=== PATIENT | female | born 1940 | race Caucasian/White ===

== ENCOUNTER 2024-04-28 12:47 | Outpatient (AMB) | payer MEDICARE, SELFPAY ==
--- NOTE | 2024-04-28 12:56 | MHC.OFFVIS ---
Intake Visit Reasons: incontinence Intake Note: New Patient presents for initial visit for incontinence Urology Medications: none Blood Thinner: none PVR: 0ml's Patient Experience Coordinator Required: No Accompanied by: Self / Same As Patient Allergies No Known Allergies Allergy (Verified 04/28/24 13:38) Medication List - Last Reconciled 04/28/24 by FRENCH Zayas-SARAH clotrimazole 1% 1 appl topical BID ergocalciferol (vitamin D2) 50,000 units PO DAILY famotidine 20 mg PO BID hydrochlorothiazide 12.5 mg PO DAILY olmesartan 40 mg PO DAILY venlafaxine ER 150 mg PO DAILY venlafaxine ER 75 mg PO DAILY HPI Comments Details: Fany yoon is a very pleasant 84-year-old female patient of Dr. Mohr. She has a past medical history of hypertension and type 2 diabetes. She presents to the office today as a new patient for urinary incontinence. In discussion with the patient today she reports symptoms have been present for over 20 years however feels they are worsening. She reports noting upon standing she has on sensed urinary incontinence. When asked she does report a previous history of 2 vaginal births of average size children. She otherwise denies hematuria, dysuria, foul smelling urine, changes to urinary stream, flank pain, fever, and or chills. In office urinalysis results reviewed with the patient today. PVR 0 mL. We discussed at length potential causes of incontinence as well as further treatment options and risks and benefits of these treatment options. Information was provided throughout today's office visit. All questions were answered. 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 She otherwise offers no other issues or concerns at this time. [facility] Medical History Type 2 diabetes mellitus without complication Stress incontinence Primary hypertension Review of Systems Const All systems reviewed & are unremarkable except as noted in HPI and below Physical Exam Const General: cooperative, healthy appearing, comfortable, no acute distress, well developed, alert and awake Orientation/consciousness: patient oriented x3 Limitations: no limitations HEENT Head: Yes normal to inspection, Yes normocephalic and Yes atraumatic Ears: hearing grossly normal bilaterally Eyes General: appearance normal, both eyes and all related structures Neck Neck: Yes normal visual inspection and Yes trachea midline Chest Chest palpation & inspection: normal inspection of the chest Resp Effort & Inspection: normal respiratory effort and able to speak in complete sentences Cardio Rate: regular rate GI Inspection: Yes normal to inspection General: Yes no CVA tenderness Back/Spine/Pelvis Back: no CVA tenderness Skin General skin exam: no rashes or lesions noted Neuro General: patient oriented x3 Extrem General: Yes normal to inspection Psych Appearance: grossly normal and well kempt Mental Status: mental status grossly normal Speech and movement: Normal speech and movement present and Clear speech present Affect: normal affect Attitude: cooperative Thought process: Normal thought process present Thought content: Normal thought content present Insight: Fair insight present (Psych) Judgement: Fair judgement present (Psych) Office Procedures Post Void Residual Post Residual Void Post Void Residual (PVR): 0 [id number]-[id number] Void Residual by ultrasound Results AMB Urinalysis, Automated UA Leukoctes 0 Trevin/uL Last Edit by [employer] on 04/28/24 13:40 UA Nitrite Last Edit by [employer] on 04/28/24 13:40 UA Urobilinogen 0.2 mg/dL Last Edit by [employer] on 04/28/24 13:40 UA Protein 0 mg/dL Last Edit by [employer] on 04/28/24 13:40 UA pH 7.0 Last Edit by [employer] on 04/28/24 13:40 UA Blood 0 Torres/uL Last Edit by [employer] on 04/28/24 13:40 UA Specific [place] 1.015 Last Edit by [employer] on 04/28/24 13:40 UA Ketone Last Edit by [employer] on 04/28/24 13:40 UA Bilirubin 0 mg/dL Last Edit by [employer] on 04/28/24 13:40 UA Glucose 0 mg/dL Last Edit by [employer] on 04/28/24 13:40 Assessment & Plan Assessment & Plan (1) Incontinence: Code(s): R32 - Unspecified urinary incontinence Category: Medical (2) Urinary leakage: Code(s): R32 - Unspecified urinary incontinence Category: Medical Plan In office urinalysis results reviewed with the patient today; as noted above. PVR 0 mL. We discussed at length potential causes of urinary leakage/stress incontinence as well as further treatment options and risks and benefits of these treatment options. Information provided. All questions were answered. Will obtain retroperitoneal ultrasound for further assessment evaluation. We discussed pelvic floor therapy/exercises. Follow-up in 1-3 months with imaging to be completed prior; or sooner with any issues, concerns, and or questions. Orders: Orders AMB Urinalysis Automated Today Z13.9 - Encounter for screening, unspecified AMB Post Void Residual by ultrasound Today Z13.9 - Encounter for screening, unspecified US retroperitoneal comp Today R32 - Unspecified urinary incontinence Patient Instructions: The patient had an opportunity to ask questions regarding the treatment plan. All questions were answered. Physical exam, labs, and imaging were discussed and reviewed in detail. As well as risks, benefits, and discussion of treatment choices. No major barriers to understanding were identified. The patient expressed understanding and agreement with the above treatment plan. The patient was made aware they should contact our office by phone for worsening of their current condition, the appearance of new symptoms, or with any questions or concerns. Compliance is encouraged with any medications and follow up testing that is ordered. It is a privilege to be allowed the opportunity to participate in? your urological care.? Again, if you have any questions or concerns If you have any questions or concerns please do not hesitate to contact me. The office is [phone]. This note is constructed using voice recognition software. While every effort has been made to ensure accuracy water quality specialist errors may have been included. Yours sincerely, JEANNIE Zayas Coding Level of Care Code New Pt Level 3 (69724) Diagnoses Incontinence R32 Urinary leakage R32 CPT Codes Post Residual Void - PVR CPT Code: 65622-Enzk Void Residual by ultrasound ([id number])
== END 2024-04-28 13:33 | disposition home or self-care (01) ==
PROVIDERS: PCP Pediatrics; Visit Provider Nurse Practitioner Family
DX: R32 Unspecified urinary incontinence (principal); Z13.9 Encounter for screening, unspecified
CPT/HCPCS: 99203

== ENCOUNTER → 2024-04-28 12:47 | Outpatient (BNVA) | payer MEDICARE, SELFPAY | PROVIDERS: PCP Pediatrics; Visit Provider Nurse Practitioner Family | DX: R32 Unspecified urinary incontinence (principal) | CPT/HCPCS: 51798; 81003; 99202 ==

== ENCOUNTER 2024-06-16 12:45 | Outpatient (REF) | payer MEDICARE, SELFPAY ==
--- NOTE | ~2024-06-16 | US_ITS ---
EXAMINATION: US KIDNEY BILATERAL HISTORY: R32 - Unspecified urinary incontinence TECHNIQUE: Real-time grayscale ultrasound imaging of the kidneys was performed and images were reviewed. COMPARISON: There are no prior studies for comparison. FINDINGS: Right kidney: The right kidney measures 10.5 x 4.0 x 4.4 cm. Renal parenchymal echotexture and thickness are normal. There is an upper pole cyst measuring 9 x 8 x 13 mm. There is mild fullness of the collecting system. No calculi are identified. Left Kidney: The left kidney measures 9.7 x 4.7 x 4.1 cm. Renal parenchymal echotexture and thickness are normal. There is a 4 x 4 by 2 mm cyst demonstrating a wall calcification in the interpolar region. There is mild pelvic fullness. No definite calculi are identified. US/US renal BI IMPRESSION: Bilateral renal cysts as described. Mild fullness of the bilateral renal collecting systems of uncertain significance. Electronically signed by: Elvis Germain MD 06/16/2024 03:28 PM EDT
== END 2024-06-16 12:46 | disposition home or self-care (01) ==
LOC: HO.US 12:45
PROVIDERS: PCP Pediatrics; Visit Provider Nurse Practitioner Family
DX: R32 Unspecified urinary incontinence (principal)
CPT/HCPCS: 76775

== ENCOUNTER → 2024-06-16 12:46 | Outpatient (BNV) | payer MEDICARE, SELFPAY | PROVIDERS: PCP Pediatrics; Visit Provider Radiology Diagnostic Radiology | DX: R32 Unspecified urinary incontinence (principal); N28.1 Cyst of kidney, acquired | CPT/HCPCS: 76775 ==

== ENCOUNTER 2024-06-30 12:07 | Outpatient (AMB) | payer MEDICARE, SELFPAY ==
--- NOTE | 2024-06-30 12:07 | A.OFFVIS_ITS ---
Intake Visit Reasons: 3 month follow up/ US(set) Intake Note: Patient presents today for tele visir follow up on: incontinence Urology Medications: none Blood Thinner: none Ballroom Dancer Required: No Accompanied by: Self / Same As Patient Allergies No Known Allergies Allergy (Verified 06/30/24 12:21) Medication List - Last Reconciled 06/30/24 by JEANNIE Zayas clotrimazole 1% 1 appl topical BID ergocalciferol (vitamin D2) 50,000 units PO DAILY famotidine 20 mg PO BID hydrochlorothiazide 12.5 mg PO DAILY olmesartan 40 mg PO DAILY venlafaxine ER 150 mg PO DAILY venlafaxine ER 75 mg PO DAILY HPI Comments Details: Fany Carvalho is a pleasant 84-year-old female patient of Dr. Mohr. She has a past medical history of hypertension and type 2 diabetes. She is being followed up on today via telehealth. Of note, patient was seen approximately 2 months ago as a new patient for urinary incontinence at which time a retroperitoneal ultrasound was ordered for further assessment evaluation. These results were reviewed with the patient today. Bilateral kidneys with no renal calculi. Bilateral renal cysts and mild fullness of bilateral renal collecting system noted. Patient unable to perform bladder ultrasound as she did not go with full bladder this has since been rescheduled. In discussion with the patient today she reports having trialed lifestyle modification with timed/scheduled voiding as recommending during initial appointment. She discusses feeling this has been helpful and she has had decreased episodes of incontinence. We discussed further interventions to include pelvic floor therapy or trial of medication as well as in office urodynamics for further assessment evaluation however patient feels lifestyle modifications have been helpful and would like to continue. She otherwise denies hematuria, dysuria, foul smelling urine, changes to urinary stream, flank pain, fever, and or chills. We discussed at length potential causes of incontinence as well as further treatment options and risks and benefits of these treatment options. All questions were answered. 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 She otherwise offers no other issues or concerns at this time. [facility] Medical History Type 2 diabetes mellitus without complication Stress incontinence Primary hypertension Review of Systems Const All systems reviewed & are unremarkable except as noted in HPI and below Physical Exam Const General: cooperative Orientation/consciousness: patient oriented x3 Resp Effort & Inspection: able to speak in complete sentences Neuro General: patient oriented x3 Psych Speech and movement: Clear speech present Affect: normal affect Thought content: Normal thought content present Insight: Fair insight present (Psych) Judgement: Fair judgement present (Psych) Telehealth Telehealth Telehealth Platform: [employer] Location of provider rendering services: practice address Location of patient: address on file Patient Identification confirmed using: Name, : Yes Telehealth method: voice only Patient verbally consented to treatment: Yes Patient verbally consented to billing insurance company: Yes Patient informed of any privacy concerns related to visit: Yes Minutes spent on Phone/Video with Pt.: 15 Results Reviewed Results Reviewed: Date of Service: 06/16/24 Procedure(s): US renal BI FINDINGS: Right kidney: The right kidney measures 10.5 x 4.0 x 4.4 cm. Renal parenchymal echotexture and thickness are normal. There is an upper pole cyst measuring 9 x 8 x 13 mm. There is mild fullness of the collecting system. No calculi are identified. Left Kidney: The left kidney measures 9.7 x 4.7 x 4.1 cm. Renal parenchymal echotexture and thickness are normal. There is a 4 x 4 by 2 mm cyst demonstrating a wall calcification in the interpolar region. There is mild pelvic fullness. No definite calculi are identified. IMPRESSION: Bilateral renal cysts as described. Mild fullness of the bilateral renal collecting systems of uncertain significance. Assessment & Plan Assessment & Plan (1) Urinary leakage: Code(s): R32 - Unspecified urinary incontinence Category: Medical (2) Incontinence: Code(s): R32 - Unspecified urinary incontinence Category: Medical (3) Renal cyst: Code(s): N28.1 - Cyst of kidney, acquired Category: Medical Plan Recent renal imaging results reviewed with the patient today; as noted above. Patient would like to continue with surveillance monitoring as she feels timed/scheduled voiding has been helpful. We discussed potential causes of lower urinary tract symptoms as well as further workup in risks and benefits of these interventions. Follow-up in 3 months with PVR; or sooner with any issues, concerns, and or questions. Patient Instructions: The patient had an opportunity to ask questions regarding the treatment plan. All questions were answered. Physical exam, labs, and imaging were discussed and reviewed in detail. As well as risks, benefits, and discussion of treatment choices. No major barriers to understanding were identified. The patient expressed understanding and agreement with the above treatment plan. The patient was made aware they should contact our office by phone for worsening of their current condition, the appearance of new symptoms, or with any questions or concerns. Compliance is encouraged with any medications and follow up testing that is ordered. It is a privilege to be allowed the opportunity to participate in? your urological care.? Again, if you have any questions or concerns If you have any questions or concerns please do not hesitate to contact me. The office is [phone]. This note is constructed using voice recognition software. While every effort has been made to ensure accuracy shop worker errors may have been included. Yours sincerely, JEANNIE Zayas Coding Level of Care Code Tele Est Pt Level 3 (65307) Diagnoses Urinary leakage R32 Incontinence R32 Renal cyst N28.1
== END 2024-06-30 13:23 | disposition home or self-care (01) ==
LOC: HO.HUSH 12:07
PROVIDERS: PCP Pediatrics; Visit Provider Nurse Practitioner Family
DX: R32 Unspecified urinary incontinence (principal); N28.1 Cyst of kidney, acquired
CPT/HCPCS: 99213

== ENCOUNTER → 2024-06-30 12:07 | Outpatient (BNVA) | payer MEDICARE, SELFPAY | PROVIDERS: PCP Pediatrics; Visit Provider Nurse Practitioner Family ==

== ENCOUNTER 2024-09-30 12:09 | Outpatient (AMB) | payer MEDICARE, SELFPAY ==
--- NOTE | 2024-09-30 13:34 | MHC.OFFVIS ---
Intake Visit Reasons: 3M follow up Intake Note: Patient presents today for tele visir follow up on: incontinence Urology Medications: none Blood Thinner: none PVR: 64ml's Data Power Consultant Required: No Accompanied by: Self / Same As Patient Allergies No Known Allergies Allergy (Verified 09/30/24 15:11) Medication List - Last Reconciled 09/30/24 by JEANNIE Zayas clotrimazole 1% 1 appl topical BID ergocalciferol (vitamin D2) 50,000 units PO DAILY famotidine 20 mg PO BID hydrochlorothiazide 12.5 mg PO DAILY olmesartan 40 mg PO DAILY venlafaxine ER 150 mg PO DAILY venlafaxine ER 75 mg PO DAILY HPI Comments Details: Fany Carvalho is a pleasant 84-year-old female patient of Dr. Mohr. She has a past medical history of hypertension and type 2 diabetes. She presents to the office today for follow-up of her lower urinary tract symptoms. In discussion with the patient today she continues to experience episodes of mixed urinary incontinence. We did review further treatment options of mixed urinary incontinence and risks and benefits of these interventions. All questions were answered. Previous workup has included renal ultrasound 06/30 bilateral kidneys are normal in thickness and echotexture. No renal calculi bilaterally. Bilateral renal cysts. Mild fullness of bilateral renal collecting systems. In office urinalysis results reviewed with the patient today. PVR 64mls. We discussed further interventions to include pelvic floor therapy or trial of medication as well as in office urodynamics for further assessment evaluation. She otherwise denies hematuria, dysuria, foul smelling urine, changes to urinary stream, flank pain, fever, and or chills. We discussed at length potential causes of incontinence as well as further treatment options and risks and benefits of these treatment options. All questions were answered. 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 She otherwise offers no other issues or concerns at this time. [facility] Medical History Type 2 diabetes mellitus without complication Stress incontinence Primary hypertension Review of Systems Const All systems reviewed & are unremarkable except as noted in HPI and below Physical Exam Const General: cooperative, healthy appearing, comfortable, no acute distress, well developed, alert and awake Orientation/consciousness: patient oriented x3 Limitations: no limitations HEENT Head: Yes normal to inspection, Yes normocephalic and Yes atraumatic Ears: hearing grossly normal bilaterally Eyes General: appearance normal, both eyes and all related structures Neck Neck: Yes normal visual inspection and Yes trachea midline Chest Chest palpation & inspection: normal inspection of the chest Resp Effort & Inspection: normal respiratory effort and able to speak in complete sentences Cardio Rate: regular rate GI Inspection: Yes normal to inspection General: Yes no CVA tenderness Back/Spine/Pelvis Back: no CVA tenderness Skin General skin exam: no rashes or lesions noted Neuro General: patient oriented x3 Extrem General: Yes normal to inspection Psych Appearance: grossly normal and well kempt Mental Status: mental status grossly normal Speech and movement: Normal speech and movement present and Clear speech present Affect: normal affect Attitude: cooperative Thought process: Normal thought process present Thought content: Normal thought content present Insight: Fair insight present (Psych) Judgement: Fair judgement present (Psych) Office Procedures Post Void Residual Post Residual Void Post Void Residual (PVR): 64 [id number] Void Residual by ultrasound Results AMB Urinalysis, Automated UA Leukoctes 0 Trevin/uL Last Edit by Hamilton Gao [facility] on 09/30/24 13:55 UA Nitrite [facility] on 09/30/24 13:55 UA Urobilinogen 0.2 mg/dL Last Edit by Hamilton Gao [facility] on 09/30/24 13:55 UA Protein 0 mg/dL [facility] on 09/30/24 13:55 UA pH 6.5 Last Edit [facility] on 09/30/24 13:55 UA Blood 0 Torres/uL Last Edit [facility] on 09/30/24 13:55 UA Specific [place] 1.015 Last Edit by Hamilton Gao [facility] on 09/30/24 13:55 UA Ketone Last Edit [facility] on 09/30/24 13:55 UA Bilirubin 0 mg/dL Last Edit [facility] on 09/30/24 13:55 UA Glucose 0 mg/dL Last Edit [facility] on 09/30/24 13:55 Results Reviewed Results Reviewed: Laboratory Last Values Urine pH (Auto) 6.5 09/30/24 13:54 Specific [place] (Auto) 1.015 09/30/24 13:54 Urine Protein (Auto) 0 mg/dL 09/30/24 13:54 Glucose (UA)(Auto) 0 mg/dL 09/30/24 13:54 Urine Blood (Auto) 0 Torres/uL 09/30/24 13:54 Urine Bilirubin (Auto) 0 mg/dL 09/30/24 13:54 Urine Urobilinogen (Auto) 0.2 mg/dL 09/30/24 13:54 Leukocyte Esterase (Auto) 0 Trevin/uL 09/30/24 13:54 Date of Service: 06/16/24 Procedure(s): US renal BI FINDINGS: Right kidney: The right kidney measures 10.5 x 4.0 x 4.4 cm. Renal parenchymal echotexture and thickness are normal. There is an upper pole cyst measuring 9 x 8 x 13 mm. There is mild fullness of the collecting system. No calculi are identified. Left Kidney: The left kidney measures 9.7 x 4.7 x 4.1 cm. Renal parenchymal echotexture and thickness are normal. There is a 4 x 4 by 2 mm cyst demonstrating a wall calcification in the interpolar region. There is mild pelvic fullness. No definite calculi are identified. IMPRESSION: Bilateral renal cysts as described. Mild fullness of the bilateral renal collecting systems of uncertain significance. Assessment & Plan Assessment & Plan (1) Urinary leakage: Code(s): R32 - Unspecified urinary incontinence Category: Medical (2) Incontinence: Code(s): R32 - Unspecified urinary incontinence Category: Medical (3) Renal cyst: Code(s): N28.1 - Cyst of kidney, acquired Category: Medical Plan In office urinalysis results reviewed with the patient today; as noted above. PVR 64 mL Recent renal imaging results reviewed with the patient today; as noted above. We did discussed further treatment options of lower urinary tract symptoms patient is experiencing as well as risks and benefits of these treatment options Start Myrbetriq as discussed and prescribed. Follow-up in 1-3 months with PVR; or sooner with any issues, concerns, and or questions. Orders: Orders AMB Urinalysis Automated Today Z13.9 - Encounter for screening, unspecified AMB Post Void Residual by ultrasound Today R32 - Unspecified urinary incontinence Medications: New mirabegron ER (Myrbetriq) 25 mg PO DAILY 30 tabs 3RF 30 days N32.81 - Overactive bladder, R39.15 - Urgency of urination Patient Instructions: The patient had an opportunity to ask questions regarding the treatment plan. All questions were answered. Physical exam, labs, and imaging were discussed and reviewed in detail. As well as risks, benefits, and discussion of treatment choices. No major barriers to understanding were identified. The patient expressed understanding and agreement with the above treatment plan. The patient was made aware they should contact our office by phone for worsening of their current condition, the appearance of new symptoms, or with any questions or concerns. Compliance is encouraged with any medications and follow up testing that is ordered. It is a privilege to be allowed the opportunity to participate in? your urological care.? Again, if you have any questions or concerns If you have any questions or concerns please do not hesitate to contact me. The office is [phone]. This note is constructed using voice recognition software. While every effort has been made to ensure accuracy drift miner errors may have been included. Yours sincerely, JEANNIE Zayas Coding Level of Care Code Est Pt Level 4 (21731) Diagnoses Urinary leakage R32 Incontinence R32 Renal cyst N28.1 CPT Codes Post Residual Void - PVR CPT Code: 67930-Sglj Void Residual by ultrasound ([id number])
== END 2024-09-30 14:45 | disposition home or self-care (01) ==
PROVIDERS: PCP Pediatrics; Visit Provider Nurse Practitioner Family
DX: R32 Unspecified urinary incontinence (principal); N28.1 Cyst of kidney, acquired; Z13.9 Encounter for screening, unspecified
CPT/HCPCS: 99214

== ENCOUNTER → 2024-09-30 12:09 | Outpatient (BNVA) | payer MEDICARE, SELFPAY | PROVIDERS: PCP Pediatrics; Visit Provider Nurse Practitioner Family | DX: N28.1 Cyst of kidney, acquired (principal); R32 Unspecified urinary incontinence | CPT/HCPCS: 51798; 81003; 99212 ==

== ENCOUNTER 2025-01-05 11:43 | Outpatient (AMB) | payer MEDICARE, SELFPAY ==
--- NOTE | 2025-01-05 11:49 | MHC.OFFVIS ---
Intake Visit Reasons: 3M/PVR Intake Note: patient presents today for: 3mo/PVR urology medications: mirabegron blood thinners: none today's PVR: 20mls Business Architect Required: No Accompanied by: Self / Same As Patient Allergies No Known Allergies Allergy (Verified 01/05/25 13:10) Medication List - Last Reconciled 01/05/25 by JEANNIE Zayas clotrimazole 1% 1 appl topical BID ergocalciferol (vitamin D2) 50,000 units PO DAILY famotidine 20 mg PO BID hydrochlorothiazide 12.5 mg PO DAILY mirabegron ER (Myrbetriq) 25 mg PO DAILY 30 days olmesartan 40 mg PO DAILY solifenacin (Vesicare) 5 mg PO DAILY 30 days venlafaxine ER 150 mg PO DAILY venlafaxine ER 75 mg PO DAILY HPI Comments Details: Fany Carvalho is a pleasant 84-year-old female patient of Dr. Mohr. She has a past medical history of hypertension and type 2 diabetes. She presents to the office today for follow-up of her lower urinary tract symptoms. In discussion with the patient today she continues to experience episodes of mixed urinary incontinence. She reports feeling Myrbetriq has been helpful in lessening these episodes however she does continue to have mixed urinary incontinence. Previous workup has included renal ultrasound 06/30 bilateral kidneys are normal in thickness and echotexture. No renal calculi bilaterally. Bilateral renal cysts. Mild fullness of bilateral renal collecting systems. In office urinalysis results reviewed with the patient today. PVR 20mls. We did discussed further treatment options and risks and benefits of these treatment options. Information provided regarding pelvic floor therapy as well as in office urodynamics. She otherwise denies hematuria, dysuria, foul-smelling urine, changes to urinary stream, flank pain, fever, and or chills. She discusses her recent hospitalization for pneumonia however has been recovering well. 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 All questions were answered. She otherwise offers no other issues or concerns at this time. [facility] Medical History Type 2 diabetes mellitus without complication Stress incontinence Primary hypertension Review of Systems Const All systems reviewed & are unremarkable except as noted in HPI and below Physical Exam Const General: cooperative, healthy appearing, comfortable, no acute distress, well developed, alert and awake Orientation/consciousness: patient oriented x3 Limitations: no limitations HEENT Head: Yes normal to inspection, Yes normocephalic and Yes atraumatic Ears: hearing grossly normal bilaterally Eyes General: appearance normal, both eyes and all related structures Neck Neck: Yes normal visual inspection and Yes trachea midline Chest Chest palpation & inspection: normal inspection of the chest Resp Effort & Inspection: normal respiratory effort and able to speak in complete sentences Cardio Rate: regular rate GI Inspection: Yes normal to inspection General: Yes no CVA tenderness Back/Spine/Pelvis Back: no CVA tenderness Skin General skin exam: no rashes or lesions noted Neuro General: patient oriented x3 Extrem General: Yes normal to inspection Psych Appearance: grossly normal and well kempt Mental Status: mental status grossly normal Speech and movement: Normal speech and movement present and Clear speech present Affect: normal affect Attitude: cooperative Thought process: Normal thought process present Thought content: Normal thought content present Insight: Fair insight present (Psych) Judgement: Fair judgement present (Psych) Office Procedures Post Void Residual Post Residual Void Post Void Residual (PVR): 20 28187-[id number] Void Residual by ultrasound Results AMB Urinalysis, Automated UA Leukoctes 15 Trevin/uL Last Edit by JAYRO Lloyd on 01/05/25 12:05 UA Nitrite Last Edit by JAYRO Lloyd on 01/05/25 12:05 UA Urobilinogen 0.2 mg/dL Last Edit by JAYRO Lloyd on 01/05/25 12:05 UA Protein 15 mg/dL Last Edit by JAYRO Lloyd on 01/05/25 12:05 UA pH 6.5 Last Edit by JAYRO Lloyd on 01/05/25 12:05 UA Blood 0 Torres/uL Last Edit by JAYRO Lloyd on 01/05/25 12:05 UA Specific [place] 1.015 Last Edit by JAYRO Lloyd on 01/05/25 12:05 UA Ketone Negative Last Edit by JAYRO Lloyd on 01/05/25 12:05 UA Bilirubin 0 mg/dL Last Edit by JAYRO Lloyd on 01/05/25 12:05 UA Glucose 0 mg/dL Last Edit by JAYRO Lloyd on 01/05/25 12:05 Results Reviewed Results Reviewed: Laboratory Last Values Urine pH (Auto) 6.5 01/05/25 12:04 Specific [place] (Auto) 1.015 01/05/25 12:04 Urine Protein (Auto) 15 mg/dL 01/05/25 12:04 Glucose (UA)(Auto) 0 mg/dL 01/05/25 12:04 Urine Ketones (Auto) Negative 01/05/25 12:04 Urine Blood (Auto) 0 Torres/uL 01/05/25 12:04 Urine Bilirubin (Auto) 0 mg/dL 01/05/25 12:04 Urine Urobilinogen (Auto) 0.2 mg/dL 01/05/25 12:04 Leukocyte Esterase (Auto) 15 Trevin/uL 01/05/25 12:04 Assessment & Plan Assessment & Plan (1) Incontinence: Code(s): R32 - Unspecified urinary incontinence Category: Medical (2) Urinary leakage: Code(s): R32 - Unspecified urinary incontinence Category: Medical (3) Renal cyst: Code(s): N28.1 - Cyst of kidney, acquired Category: Medical Plan In office urinalysis results reviewed the patient today; as noted above. PVR 20 mL. Continue Myrbetriq. Start VESIcare as discussed and prescribed. We did discuss further treatment options of lower urinary tract symptoms she is experiencing as well as risks and benefits of these treatment options. All questions were answered. We did discussed the importance of timed/scheduled voiding Information provided regarding pelvic floor exercises. Follow-up in 1-3 months with PVR; or sooner with any issues, concerns, and or questions. Orders: Orders AMB Post Void Residual by ultrasound Today R32 - Unspecified urinary incontinence AMB Urinalysis Automated Today Z13.9 - Encounter for screening, unspecified Medications: New solifenacin (Vesicare) 5 mg PO DAILY 30 tabs 3RF 30 days Refilled mirabegron ER (Myrbetriq) 25 mg PO DAILY 30 tabs 3RF 30 days N32.81 - Overactive bladder, R39.15 - Urgency of urination Patient Instructions: The patient had an opportunity to ask questions regarding the treatment plan. All questions were answered. Physical exam, labs, and imaging were discussed and reviewed in detail. As well as risks, benefits, and discussion of treatment choices. No major barriers to understanding were identified. The patient expressed understanding and agreement with the above treatment plan. The patient was made aware they should contact our office by phone for worsening of their current condition, the appearance of new symptoms, or with any questions or concerns. Compliance is encouraged with any medications and follow up testing that is ordered. It is a privilege to be allowed the opportunity to participate in? your urological care.? Again, if you have any questions or concerns If you have any questions or concerns please do not hesitate to contact me. The office is [phone]. This note is constructed using voice recognition software. While every effort has been made to ensure accuracy claims account manager errors may have been included. Yours sincerely, JEANNIE Zayas Coding Level of Care Code Est Pt Level 4 (63384) Complex EM visit Add On G2211 Diagnoses Incontinence R32 Urinary leakage R32 Renal cyst N28.1 CPT Codes Post Residual Void - PVR CPT Code: 20751-Zebj Void Residual by ultrasound ([id number])
--- OUTSIDE RECORDS SUMMARY | 2025-01-05 13:07 | XMS_ITS | Encounter Summary ---
Author Organization [facility] Address [address] [place] [address] Phone Care Team Providers Care Surveyor Helper Rod Name Role Phone Evaristo Mohr DO Primary Care Provider Evaristo Mohr DO Unavailable [phone] Keri Knox RN Unavailable [phone] Encounter Details Date Type Department Care Team (Late st Contact Info) Description 11/14/2024 Procedure Pass [facility] [address] [place], [place] [id number] Social History Tobacco Use Types Packs/Day Years Used Date Smoking Tobacco: Never Smokeless Tobacco: Never Alcohol Use Standard Drinks/Week Comments Not Currently 0 (1 standard drink = 0.6 oz pur e alcohol) Education Answer Date Recorded Are you interested in more education? Not on shahram e 08/04/2022 Are you concerned about learning? Not on file 08/04/2022 No 08/04/2022 No 08/04/2022 Food Answer Date Recorded Within the past 6 months we worried whether our food would run out before we got money to buy more. Never True 11/13/2024 Within the past 6 months the food we bought just didn't last and we didn't have enough money to get more. Never True Residential Stability Answer Date Recor ded What is your housing situation today? I have juan alberto sing 11/13/2024 How many times have you move d in the past 12 months? Zero (I did not move) 11/13/2024 Paying for Meds Answer Date Recorded Do you have trouble paying for medicines? No 11/13/2024 Paying Utility Bills Answer Date Record ed Do you have trouble paying your heating or elect ricity bill? No 11/13/2024 Transportation Answer Date Recorded Has the lack of transportati on kept you from medical appointments or from getting medications? No 11/13/2024 Digital Access Answer Date Recorded No 11/13/2024 Yes 11/13/2024 Do you have reliable internet access at home? Ye s 11/13/2024 Do you have a device (e.g., phone, tablet, computer) with a working camera? Yes 11/13/2024 Intimate Partner Violence Answer Date R ecorded Are you denied basic needs s uch as food, clothing, or medical care? No 11/13/2024 In the past 12 months have y ou been in a relationship with a person who hurts, threatens, or tries to control you? No 11/13/2024 Are you denied basic needs s uch as food, clothing, or medical care? No 11/13/2024 In the past 12 months have y ou been in a relationship with a person who hurts, threatens, or tries to control you? No 11/13/2024 Comments No Sex and Gender Information Value Date Recorded Sex Assigned at Female 12/13/2020 11:36 AM EDT Legal Sex Female 6:32 PM EST Gender Identity Female 12/13/2020 11:36 AM EDT Sexual Orientation Straight 12/13/2020 11 :36 AM EDT documented as of this encounter Plan of Treatment Upcoming Encounters Date Type Department Care Team (Late st Contact Info) Description 01/11/2025 2:00 PM EDT Office Visit [facility] [facility] [address] [place] [address] [place] [address] Evaristo Mohr DO [address] [facility], 2nd [place] [address] 02/26/2025 10:30 AM EST Office Visit [facility] [address] [place] [address] [address]rd Floor, [address] [place] [address] JimmyHernesto, DO [address] [address] 03/18/2025 9:30 AM EST Office Visit [facility] [address] [place] [address] [place] [address] Evaristo Mhor, [address] [facility], [address] [place] [id number] documented as of this encounter Visit Diagnoses Not on filedocumented in this encounter Additional Health Concerns Infection Onset Date Last Indicated Resolved Time CoV-Risk 11/13/2024 11/13/2024 11/24/2024 1:21 AM EDT Assessment Noted Time PHQ-9 Depression Total Score: 8 12/14/19 21 12:03 PM EDT PHQ-2 Depression Total Score: 1 03/15/20 24 9:34 PM EST documented as of this encounter Care Teams Surveyor Helper Rod Relationship Specialty Start Date End Date Evaristo Mohr DO [address] [place] [id number] PCP - General Internal Medicine 12/08/21 Evaristo Mohr DO [address] [place] [id number] Insurance Assigned Provider 07/13/23 Keri Knox, RN [address] [place] [id number] [employer] T[employer] Calender 12/31/22 documented as of this encounter Additional Source Comments The information contained in this document represents components of the legal health record. It is not the complete legal health record.[facility]
--- OUTSIDE RECORDS SUMMARY | 2025-01-05 13:07 | XMS_ITS | Encounter Summary ---
Author Organization [facility] Address [address] [place] [address] Phone Care Team Providers Care Spray Worker Name Role Phone Ros Hernandez MD Primary Care Provider [email or web address] Ros Hernandez MD Unavailable [email or web address] Evaristo Mohr DO Primary Care Provider Evaristo Mohr DO Unavailable [phone] Keri Knox RN Unavailable Encounter Details Date Type Department Care Team (Late st Contact Info) Description 11/16/2021 Procedure Pass [place] Admitting Dept - [facility] Department [address] [place] [id number] Social History Tobacco Use Types Packs/Day Years Used Date Smoking Tobacco: Never Smokeless Tobacco: Never Alcohol Use Standard Drinks/Week Comments Not Currently 0 (1 standard drink = 0.6 oz pur e alcohol) Comments No Sex and Gender Information Value Date Recorded Sex Assigned at Female 12/13/2020 11:36 AM EDT Legal Sex Female 6:32 PM EST Gender Identity Female 12/13/2020 11:36 AM EDT Sexual Orientation Straight 12/13/2020 11 :36 AM EDT documented as of this encounter Functional Status * Calculated C-SSRS Risk Score (Lifetime/Recent) Answer Date of Assessment Author No Risk Indicated 11/16/2021 2:52 PM EDT Sharyn Gordillo, SIOBHAN * [place] Suicide Severity Rating Scale (Screener/Recent Self-Report) Question Answer Date of Assessment Author 1. Wish to be (Past 1 Month) No 11/16/2021 2:52 PM EDT Sharyn Gordillo, SIOBHAN 2. Non-Specific Active Suici guero Thoughts (Past 1 Month) No 11/16/2021 2:52 PM EDT Sharyn Gordillo, SIOBHAN 6. Suicidal Behavior (Lifetime) No 2:52 PM EDT Sharyn Gordillo, SIOBHAN documented as of this encounter Plan of Treatment Upcoming Encounters Date Type Department Care Team (Late st Contact Info) Description 01/11/2025 2:00 PM EDT Office Visit [address] [place] [address] Evaristo Mohr, [address] [facility], [address] [place] [address] 02/26/2025 10:30 AM EST Office Visit [facility] [address] [place] [address] [address]rd Floor, [address] [place] [address] [address] [facility] [address] [place] [address] 03/18/2025 9:30 AM EST Office Visit [address] [place] [address] Evaristo Mohr, [address] [place] [address], [address] [place] [address] documented as of this encounter Visit Diagnoses Not on filedocumented in this encounter Additional Health Concerns Infection Onset Date Last Indicated Resolved Time MDR-GN 07/18/2021 12/15/2021 12/22/2022 1:23 AM EDT CoV-Exposed Comment:Added per Home Health documentation 02/02/2022 02/07/2022 02/13/2022 1:[address] CoV-Exposed Comment:Added per Home Health documentation 02/13/2022 02/13/2022 02/24/2022 1:[address] CoV-Risk 11/13/2024 11/13/2024 11/24/2024 1:21 AM EDT Assessment Noted Time PHQ-9 Depression Total Score: 8 12/14/19 21 12:03 PM EDT PHQ-2 Depression Total Score: 1 03/23/20 21 10:31 AM EST documented as of this encounter Care Teams Spray Worker Relationship Specialty Start Date End Date Ros Hernandez MD [email or web address] PCP - General Family Medicine 05/30/20 12/07/21 Evaristo Mohr DO [address] [place] [phone] PCP - General Internal Medicine 12/08/21 Ros Hernandez MD [email or web address] Insurance Assigned Provider 07/16/20 07/14/22 Evaristo Mohr DO [address] [place] [id number] Insurance Assigned Provider 07/13/23 Keri Knox, RN [address] [place] [id number] [email or web address] Senior Business Development Manager 12/31/22 documented as of this encounter Additional Source Comments The information contained in this document represents components of the legal health record. It is not the complete legal health record.[facility]
--- OUTSIDE RECORDS SUMMARY | 2025-01-05 13:07 | XMS_ITS | Clinical Summary ---
Author Organization [facility] Address [address] [place] [address] Phone Care Team Providers Care Patch Finisher Name Role Phone Ousmane Mohr DO Primary Care Provider Ousmane Mohr DO Unavailable [phone] Keri Knox RN Unavailable [phone] Allergies No known active allergies Medications hydroCHLOROthia zide 12.5 mg capsule TAKE 1 CAPSULE BY MOUTH EVERY DAY 90 capsule 3 05/19/19 25 Active famotidine (PEPCID) 20 MG tablet TAKE 1 TABLET BY MOUTH TWICE A DAY 180 tablet 3 05/20/19 25 Active Additional Information Patient taking differently:20 mg OralAs needed in apheresis, Reported on 11/20/2024 ONETOUCH ULTRA TEST Strp stripsIndicatio ns:Diabetes mellitus USE 1 EACH EVERY MORNING 50 strip 3 07/18/19 25 Active docusate sodium (COLACE) 50 MG capsule Take 50 mg by mouth 2 (two) times a day as needed for mild constipation. Active ergocalciferol (DRISDOL) 50,000 unit capsuleIndicati ons:Vitamin D deficiency TAKE 1 CAPSULE (50,000 UNITS TOTAL) BY MOUTH EVERY 30 DAYS 3 capsule 3 10/21/19 25 Active MYRBETRIQ 25 mg Tb24 Take 1 tablet by mouth every morning. 10/28/19 25 Active multivitamin-mi nerals-lutein (CENTRUM SILVER) Tab Take 1 tablet by mouth daily. Active apixaban (ELIQUIS) 5 mg tablet Take 1 tablet (5 mg total) by mouth 2 (two) times a day. 60 tablet 2 11/16/19 25 Active venlafaxine (EFFEXOR-XR) 150 MG 24 hr capsule TAKE 1 CAPSULE (150 MG TOTAL) BY MOUTH DAILY. WITH 75 MG DOSE PER DAY. 90 capsule 3 11/17/19 25 Active venlafaxine (EFFEXOR-XR) 75 MG 24 hr capsule TAKE 1 CAPSULE (75 MG TOTAL) BY MOUTH DAILY. WITH 150 MG DOSE PER DAY. 90 capsule 3 11/17/19 25 Active olmesartan (BENICAR) 40 mg tabletIndicatio ns:Primary hypertension Take 0.5 tablets (20 mg total) by mouth daily. 90 tablet 3 12/07/19 25 Active candesartan (ATACAND) 16 MG tabletIndicatio ns:Elevated BP without diagnosis of hypertension Take 1 tablet (16 mg total) by mouth daily. 90 tablet 06/17/19 22 022 Discontinued Active Problems Patient Care Coordination No te Formatting of this note migh t be different from the original. Patient is high risk for these reasons: multiple chronic condition Living Situation: Lives with spouse and adult son, 1 story ranch Functional Status (ADL's/iADLs): Independent Family/Social Supports: Family, gnosticism community Goals of Care (HCP/Molst): HCP filed 11/21/2021 Community Supports (e.g. VNA, DME Vendors, Elder Services): Therapist biweekly Transportation: Drives self Medication Management System/Specialized Pharmacy Needs: local pharmacy forklift picker, self managed with pillbox Financial Concerns: [facility] insurance is costing too much Other Supports and Care Needs: lower cost of medications Problem Noted Date Diagnosed Date Sepsis due to pneumonia 11/14/2024 Assessment & Plan (11/18/2024 8:34 AM EDT): I believe that this could have been responsible for triggering the atrial fibrillation Assessment & Plan (11/14/2024 1:21 AM EDT): Meets sepsis by SIRS criteria of fever and tachypnea. Probable source is pulmonary as she has rhonchi in the left base and chest x-ray with infiltrate in that area as well. Given IV ceftriaxone and oral doxycycline in the emergency department as there is a remote chance for tickborne illness with her thrombocytopenia. Will continue with ceftriaxone and doxycycline while tick panel pending. New onset atrial fibrillation 11/14/2024 Assessment & Plan (11/23/2024 7:17 PM EDT): She will have follow up with cardiology. We discussed that this may have been temporary and just related to her pneumonia. Assessment & Plan (11/18/2024 8:34 AM EDT): She had a new diagnosis of atrial fibrillation now on anticoagulation but this was during a time that she had a new diagnosis of pneumonia as well. It is conceivable that this triggered the atrial fibrillation we are going to get a 7-day MCT monitor to look at this Assessment & Plan (11/14/2024 1:21 AM EDT): Asymptomatic. I did not have the opportunity to discuss anticoagulation, but given her thrombocytopenia I am only going to give aspirin at this time. This can be discussed further during the admission. Will obtain an echocardiogram Impaired glucose tolerance 11/14/2024 Assessment & Plan (11/14/2024 1:21 AM EDT): Will give as needed lispro Overactive bladder 09/05/2023 Assessment & Plan (09/05/2023 10:50 PM EDT): We discussed trial of Ditropan, she is agreeable to this. Discussed possible side effects and follow-up if problematic. Order placed today. Anxiety state 03/07/2023 Assessment & Plan (04/18/2023 10:47 PM EST): Stable and well-controlled on current medication, no change at this time. Continue monitoring. Assessment & Plan (03/07/2023 11:25 PM EST): Patient with increased anxiety lately, we will increase her dose of venlafaxine to 150 mg and 75 mg for a total of 225 milligrams per day. Follow-up in 6 weeks to discuss efficacy. Constipation 12/20/2022 Assessment & Plan (12/20/2022 11:12 PM EDT): Patient some ongoing issues with constipation, Colace was working however would like to trial MiraLAX as it may be cheaper. Patient to titrate dose to soft bowel movement daily or every other day. Continue to monitor for effectiveness. Stress incontinence 09/19/2022 Assessment & Plan (09/05/2023 11:40 PM EDT): We discussed seeing urology for further treatment and management options. 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 We discussed trial of pelvic floor exercises to see if this improves symptoms. She is agreeable to this plan. Continue to monitor. ESBL E. coli carrier 01/25/2022 Overweight (BMI 25.0-29.9) 09/18/2021 Essential hypertension 03/26/2021 Assessment & Plan (12/06/2024 2:22 PM EDT): Stable and well-controlled, medication held currently, no change. Consider restart if elevated Assessment & Plan (11/23/2024 7:17 PM EDT): Her blood pressure is low. Will continue to hold olmesartan and HCTZ. Assessment & Plan (11/18/2024 8:34 AM EDT): Her blood pressure is on the lower side right now we are not going to reinstate her olmesartan or hydrochlorothiazide Assessment & Plan (11/14/2024 1:21 AM EDT): Hold hydrochlorothiazide as she likely has some dehydration from insensible loss related to fever. Will give IV fluids. Will give losartan in place of her olmesartan. Assessment & Plan (09/16/2024 4:33 PM EDT): Stable well-controlled on current medication, no changes time. Continue monitoring. Assessment & Plan (03/17/2024 12:23 AM EST): Stable well-controlled on her medication, no changes sent. Continue monitoring. Assessment & Plan (09/05/2023 10:44 PM EDT): Blood pressures relatively fzyh-[id number] elevated, some on low side. Recommended continue monitoring with no change at this time. Assessment & Plan (06/05/2023 10:42 PM EST): Blood pressure is relatively stable, continue monitoring. No change to medication at this time. Assessment & Plan (04/18/2023 10:47 PM EST): Still borderline controlled blood pressures-particularly diastolic blood pressure is elevated-will trial HCTZ, monitor for effect. Start with low-dose and titrate up if needed. Recheck BMP in 2 weeks time. Assessment & Plan (12/20/2022 11:11 PM EDT): Stable and well-controlled on current medication, no change at this time. Continue monitoring. Assessment & Plan (09/19/2022 9:24 PM EDT): Stable, continue losartan as it seems coverage was changed due to insurance requirements. Patient agreeable to this plan. We will monitor for any change in blood pressure control. Suspect will be tolerated well. Assessment & Plan (06/17/2022 11:14 PM EDT): Home blood pressure continuing to run between normal and slightly elevated, today here is again normal. Previously verified cough. We will continue monitoring, may require increased dose of medication. Assessment & Plan (05/01/2022 10:38 PM EST): Patient with a history of hypertension, has been well controlled previously however more recently has had elevated pressures. Blood pressure at home fluctuates between normal and slightly elevated. Today here is normal. We verified her cuff today in clinic which shows similar numbers. Advised continue monitoring and recheck at next visit. If persistently running elevated, could increase medication prior to next visit. Advised patient to let us know. Assessment & Plan (01/25/2022 10:07 PM EDT): Blood pressure is well controlled and cuff is verified as of today. Continue current medications as previously prescribed. No need for further adjustment. We will continue monitoring. Assessment & Plan (11/17/2021 8:48 AM EDT): BP in ED initially quite elevated 198/108, improved after pain meds. -Creatinine is at baseline, continue ARB (Valsartan while inpatient due to formulary, cont previous home med at [facility]). -Routine VS -Follow BMP Hiatal hernia 01/18/2021 Assessment & Plan (01/18/2021 5:10 PM EDT): Small hiatal hernia, seen on EGD Discussed with patient that this may or may not be related to the nausea/flushing sensation she has been experiencing Sometimes hiatal hernias can contribute to GERD, but not always Would discuss it further with GI at upcoming appointment Dysuria 01/18/2021 Assessment & Plan (06/17/2022 11:15 PM EDT): Patient again notes some dysuria-we discussed rechecking urine to ensure no UTI. Does have ESBL history. 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 Denies any new problems or concerns. Will continue monitoring. Assessment & Plan (06/17/2022 11:20 PM EDT): Continued low level depression symptoms-we discussed venlafaxine has been effective, but would like to increase dose as she still feels some depression symptoms. Increase to 150 mg daily. Assessment & Plan (06/15/2020 11:11 AM EST): She has noticed some improvement in the last few weeks, and is pleased Encouraged her to monitor symptoms Assessment & Plan (05/26/2020 3:35 PM EST): Taking citalopram 40 mg for depression for many years Has been having a rough patch these last few months Encouraged her and her ongoing search for a therapist She has been leaning on her supports, including friends and gnosticism groups Continue to monitor History of colon cancer 05/07/2019 Assessment & Plan (05/07/2019 12:31 PM EST): Genetic testing in [place] personal and family hx cancers[ parents and sibs] and may well help her offspring Left foot pain 01/22/2019 Assessment & Plan (01/22/2019 9:37 PM EDT): She with bilateral bunions and degenerative joint disease first MTPs but not bothering her as long as she has wide toe box shoes. Patient does however have tender to corns in the medial aspect of the left second toe which being helped somewhat by using a gel toe spacer. Did recommend referral to podiatry for care of her corns Osteoarthritis of both knees 01/20/2018 Type 2 diabetes mellitus wit hout complication, without long-term current use of insulin 01/20/2018 Assessment & Plan (09/16/2024 4:33 PM EDT): Stable and well-controlled with diet, continue monitoring. Assessment & Plan (03/17/2024 12:23 AM EST): Stable and well-controlled without medication-diet controlled. Continue monitoring. Assessment & Plan (09/05/2023 10:44 PM EDT): Blood sugars have been well-controlled, continue monitoring. No medication at this time. Continue monitoring. Assessment & Plan (09/05/2023 10:44 PM EDT): >>ASSESSMENT AND PLAN FOR PREDIABETES WRITTEN ON 01/20/2018 10:45 PM BY LANDEN SYED MD Daughter is concerned about her question diabetes told she has prediabetes last blood sugar was 103 due to A1c today was 6.0 did recommend increase regular physical exercise weight loss can recheck in 4-6 months and consider starting metformin if continued slow rise in A1c Assessment & Plan (09/05/2023 10:44 PM EDT): >>ASSESSMENT AND PLAN FOR PREDIABETES WRITTEN ON 01/22/2019 9:36 PM BY LANDEN SYED MD No sx sugars <110 and A1c 6.0 rec exercise and wgt reduction Assessment & Plan (09/05/2023 10:44 PM EDT): >>ASSESSMENT AND PLAN FOR PREDIABETES WRITTEN ON 05/07/2019 12:30 PM BY LANDEN SYED MD Stable ck genetic testing re proper treatment Assessment & Plan (09/05/2023 10:44 PM EDT): >>ASSESSMENT AND PLAN FOR PREDIABETES WRITTEN ON 11/17/2021 8:58 AM BY MELISA RED FNP Not on meds at home. A1c 6.3. -will cover with lispro sliding scale to help with wound healing post op. - consistent carb diet while inpatient -Nutrition consult for assistance with food choices at home Assessment & Plan (09/05/2023 10:44 PM EDT): >>ASSESSMENT AND PLAN FOR PREDIABETES WRITTEN ON 09/19/2022 9:24 PM BY OUSMANE MOHR, DO Stable and well-controlled, not truly to diabetic range. We will continue to monitor. Assessment & Plan (09/05/2023 10:44 PM EDT): >>ASSESSMENT AND PLAN FOR PREDIABETES WRITTEN ON 06/05/2023 10:42 PM BY OUSMANE MOHR, DO Stable on home readings. Continue monitoring. Resolved Problems Problem Noted Date Diagnosed Date Resolved Date Rash and other nonspecific skin eruption 08/14/2023 09/05/2023 Assessment & Plan (08/14/2023 11:18 PM EDT): Patient with 2 different rashes-abdominal rash consistent with intertrigo or similar. Continue clotrimazole. Low chance of relationship to arm rash considered at this time. Second rash on left arm has central lesion-may represent arthropod bite versus other. Spreading erythema surrounding concerning for onset of cellulitis. Recommend treatment with doxycycline as well as labs for tickborne illness. Will request [facility] [place] through E consult. Urinary frequency 03/25/2022 09/19/2022 Assessment & Plan (03/25/2022 10:03 PM EST): Patient with ongoing urinary frequency and known to be ESBL E. coli carrier, advised repeat dipstick today to monitor for any continued signs or symptoms of infection. Trace lysed blood present otherwise no signs of infection. Continue to monitor, if worsening symptoms would recommend repeat. Acute cystitis without hematuria 01/25/2022 03/25/2022 Assessment & Plan (01/25/2022 10:10 PM EDT): Patient with prior UTI with ESBL infection, advised repeat UA. Generalized rash 11/19/2021 03/07/2023 Assessment & Plan (11/20/2021 8:34 AM EDT): On day of planned discharge 11/18/2021 patient was noted to have a new rash beginning on her right forearm. IV and phlebotomy sites were examined and there was no palpable cord, no discharge or purulence, no erythema surrounding the IV sites. She had slight itching on her right wrist, but noted the rash itself was not itchy. As needed oral Benadryl was made available. In the afternoon on 11/18/2021, she then developed fever to 101.5F. A fever work- up was initiated: Chest x-ray (clear), blood cultures (no growth 2 days), urinalysis (without indication of active infection). Overnight 11/17-, the rash spread to her bilateral arms, chest, thighs, back, and legs and became confluent in places. The rash was mildly itchy, well-addressed with PO Benadryl. The patient continued to feel well, with no dyspnea, nausea, chest pain, vomiting, or malaise. Her fever resolved as of 11/19/21, and by midday 11/20/21 her rash had resolved as well. WBC normalized to 10.55. Her medication list and historical medications while hospitalized were reviewed, and felt to be noncontributory. [place] less consistent with a contact dermatitis due to detergents or other cleaning agents, since she had been hospitalized for several days and had not experienced any rash prior to the day of planned discharge. The appearance of this rash and accompanying symptoms seemed most consistent with viral exanthem, and has resolved. Follow-up items: [ ] Please monitor the patient for any further rash [ ] Recommend following vital signs closely in case of recurrence of fever or other signs of systemic illness. We will continue to monitor until she experiences some improvement. Closed fracture of right distal tibia 11/16/2021 03/07/2023 Assessment & Plan (12/14/2021 12:04 AM EDT): Patient following up with orthopedics after surgical repair, denies any new problems or concerns since discharge. Overall states she has been feeling well. She is due for repeat vitamin D level. We will follow-up in about 6 weeks to monitor progress. Assessment & Plan (11/17/2021 8:57 AM EDT): Due to mechanical fall. 2 attempts at closed reduction in ED, unsuccessful. Now s/p surgical reduction and fixation 11/16/21 ([place]). -Multimodal analgesia -Follow labs -PT/OT consults Nausea 03/02/2020 12/20/2022 Overview (03/26/2021): Having episodes of nausea and flooding sensation in the chest since summer 2019 Cardiac evaluation has been negative, GI evaluation has not discerned any cause Assessment & Plan (06/15/2020 11:12 AM EST): Increasing famotidine to twice a day seems to have decreased frequency of these keoruk-oatpj-riwethme episodes Continue at this dosing, and continue to monitor for recurrence She will follow up with me as needed Assessment & Plan (05/26/2020 3:37 PM EST): Cardiac evaluation is essentially normal TSH has been normal -unlikely thyroid abnormality A1c does not show uncontrolled diabetes, and symptoms have not responded to glucose DDx still includes GI issue, such as reflux or gastritis; adrenal/endocrine abnormality Patient is currently taking famotidine once a day for acid reflux We will have her increase this to twice a day, see if this affects the nausea/flooding feeling -patient agrees to this Plan plan for phone visit in 2 to 3 weeks to reevaluate Assessment & Plan (03/30/2020 2:34 PM EST): Tracking these episodes revealed that 1. They are occurring during sleep, and waking her 2. They occur at rest and with activity 3. Oral intake of glucose does not seem to affect it This history makes it less likely to be hypoglycemia, increasing the likelihood of cardiac disease again With negative Event montioring, TTE, recommend stress testing With hx of knee arthritis, she does not think she could do a treadmill test -will order nuclear stress test Signs and symptoms of worsening discussed; patient instructed to go to ED if any occur. F/u after stress test Assessment & Plan (03/02/2020 5:03 PM EST): Spreading warmth sensation from stomach, chest, down the arms, with associated mild nausea, occasional dizziness, occasional tingling of arms Episodes occurring more frequently now, although has had occasional episodes for possibly years Symptoms sound like they could be hypoglycemia She has history of prediabetes, last A1c 6.0 (01/2018) Cardiac work-up so far has been basically normal for age, with no outstanding abnormalities -Results reviewed with patient Recheck A1c, UA, microalbumin/creatinine today Recommend she trial glucose when these episodes occur, and keep track of her response Plan to follow-up via Zoom in about 4 weeks Cough 04/16/2019 03/02/2020 Assessment & Plan (04/16/2019 9:52 PM EST): Pt pneumonic process seems to be eradicated and discussed only ways to know [place] be CXR and cbc/diff but since improved rec holding Diaphoresis 08/22/2018 03/02/2020 Assessment & Plan (08/22/2018 10:43 AM EDT): Very concerning symptom diaphoresis followed by chills but does not appear that she has any infection which would be a because sometimes older people however do not run fevers but she does not have any source of infection on exam or history. Feel that most likely was going on patient is having some vasovagal stimulation and that is causing the the sweats minimal nausea and then the the the chilling. Could be source of pain anywhere doubt is from anxiety did recommend patient continue to observe for things we could check labs if it persists including white count sed rate CRP and advised patient to check a fever at the time when she starts to feel sweaty and fu prn Health care maintenance 01/20/20180 11/2021 Assessment & Plan (12/16/2020 5:15 PM EDT): Discussed with patient the risks and benefits of osteoporosis screening. If she does screen positive for osteoporosis, likely would not survive 5-10 years to reap benefits of bisphosphonate treatment. Due for tetanus booster. Plans to get this season's influenza vaccine. As we do not have the influenza vaccine yet, encouraged her to do both tetanus and influenza at the pharmacy. Plans to get COVID booster when available blank forms for HCP & MOLST provided Assessment & Plan (01/22/2019 9:35 PM EDT): She with yearly eye exams without any glaucoma is beginning mammograms every 3 years had one last year and too old for colonoscopies. She has been on antidepressants for quite some time and does not want to decrease the dose even though [facility] has sent reminders cautioning dose. Immunizations up-to-date though she needs a Shingrix vaccination and peer she never did receive a Prevnar. She will get a flu shot today. She is somewhat concerned because her 's took a nasty fall and so he has had a stroke in the past. He also complains of diffuse achiness but no proximal weakness to suggest PMR. Joint exams are fairly good she is status post bilateral knee replacements and does not see orthopedist anymore. She does have bunions bilaterally but they do not bother her. Patient declines getting any lab test done at this time did discuss the healthcare proxy which there is 2 children and I will also MOLST form which she does not want to sign at this time Assessment & Plan (01/20/2018 10:44 PM EDT): Patient overall doing well up-to-date on immunizations and shots so she does need a shingles vaccination. And also flu shot. She is on antidepression medications denies any coronary symptoms does have mild diabetes for prediabetes. Moderate amount of stress at home due to her who is had a stroke did recommend continued and increased regular exercise to try and keep her at home is safe as possible for as long as possible Pain of right hand 01/20/2018 0 Malaise and fatigue 11/04/2017 03/02/20 20 Assessment & Plan (05/07/2019 12:30 PM EST): Pt w stable depression on meds for testing to see appropriate med for her condition Assessment & Plan (04/16/2019 9:53 PM EST): No sign anemia but likely age and illness a nd lack of exercise Rec getting back to some of her aerobic exercise Assessment & Plan (01/22/2019 9:34 PM EDT): Patient with fatigue mainly due to probable chronic depression and increased stress from caring for her had a stroke. She does not exercise much would benefit from that and nothing to suggest anemia or hypothyroidism. 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 Does have an upcoming [place] but her with his moderate disability is staying home which is somewhat of a concern to her Encounters Date Type Department Care Team Description 01/04/2025 Enrollment [facility] - Primary [facility] [address] [place] [address] 12/28/2024 Patient Outreach [facility] [address] [place] [address] Keri Knox, SIOBHAN Care Coordination (iCMP) 12/21/2024 Telephone [facility] [address], [address] [place] [address] Hernesto Marquez DO 12/17/2024 9:34 AM EDT - 12/17/2024 11:59 PM EDT Hospital Encounter Event Monitor [address] [place] [address] Hernesto Marquez DO Discharge Disposition: Home or Self Care 12/11/[address] [place] [address] Ousmane Mohr DO BP Update 12/06/2024 5:20 PM EDT Telemedicine [address] [place] [address] Essential hypertension (Primary Dx); Primary hypertension 12/06/2024 Nurse Triage [address] [place] [address] Nadia Mendoza RN Hypertension (After Hours Call ) 12/04/2024 11:30 AM EDT Office Visit [address] [place] [address] Ousmane Mohr DO Other pneumonia, unspecified organism (Primary Dx); Paroxysmal atrial fibrillation; Essential hypertension 11/30/2024 Patient Outreach [facility] [address] [place] [address] Keri Knox, SIOBHAN Post Discharge Follow Up Call (iCMP outreach) 11/25/2024 Orders Only [address] [place] [address] Susanne Farris MD Paroxysmal atrial fibrillation 11/25/[address] [place] [address] Ousmane Mohr DO Post Discharge Follow Up Call 11/24/2024 3:30 PM EDT Office Visit [address] [place] [address] Susanne Farris MD Other pneumonia, unspecified organism (Primary Dx); Paroxysmal atrial fibrillation; Essential hypertension 11/24/[address] [place] [address] Ousmane Mohr DO 11/20/2024 2:30 PM EDT Office Visit [address] [place] [address] Liss Dior MD Other pneumonia, unspecified organism (Primary Dx); Essential hypertension; New onset atrial fibrillation 11/18/2024 8:15 AM EDT Office Visit [facility] [address] [place] [address] Dr [address] Floor, [address] [place] [address] Hernesto Marquez DO Paroxysmal atrial fibrillation (Primary Dx); Essential hypertension; New onset atrial fibrillation; Sepsis due to pneumonia 11/18/2024 Procedure Pass Event Monitor [address] [place] [address] 11/16/2024 Telephone [facility] [address] [place] [phone] Ben Pastor RPH Post-discharge Medication Reconciliation 11/16/[address] [place] [address] Ousmane Mohr DO 11/16/2024 Telephone [facility] [address] [place] [phone] Keri Knox, SIOBHAN 11/16/2024 Patient Outreach [facility] [address] [place] [phone] Keri Knox, RN Post Discharge Follow Up Call (PDA) 11/16/[address] [place] [address] Ousmane Mohr DO Medication Refill 11/16/2024 Refill [facility] [address] [place] [address] Lizzette Jesus, DOROTA Medication Refill 11/14/2024 Procedure Pass [facility] Echo Lab [address] [place] [address] 11/13/2024 8:13 PM EDT - 11/15/2024 2:00 PM EDT Hospital Encounter [facility] Telemetry [facility] [address] [place] [address] Mohan Aguilar MD Hampson, Brian S, DO Barbosa-Angles, Brianna R, DO, MPH Discharge Disposition: Home or Self Care 11/13/[address] [place] [address] Ousmane Mohr DO Triage (Migraines and dizziness); TCM Visit 10/20/2024 Patient Outreach [facility] [address] [place] [address] Keri Knox, SIOBHAN Care Coordination (iCMP outreach) 10/20/[address] [place] [address] Ousmane Mohr DO Medication Refill from Last 3 Months Immunizations Immunization Administration Dates Next Due COVID-19 (Pre-01/28) Pfizer Vaccine, mRNA, PF 08/24/2021,06/01/2020,05/11/2020 COVID-19 Pfizer Comirnaty Vaccine 12+ 01/13/2023 Influenza High-Dose Quadriva lent Preservative Free IM 01/25/2022,01/18/2021,01/21/2020 Influenza High-Dose Trivalen t Preservative Free IM 01/22/2019,01/20/2018,01/30/2017,01/01 Influenza Quadrivalent Adjuv anted Preservative Free IM 01/13/2023 Influenza Quadrivalent Prese rvative Free IM 01/13/2023 Influenza, Unspecified Formulation 02/05,02/15/2007,03/14/2004,02/25,02/09/2002,03/28/2001 Pneumococcal conjugate PCV13 01/22/2019 Pneumococcal polysaccharide PPSV23 02/25/2003 Td (adult) 5 Lf Tetanus Toxo id, PF, Adsorbed 06/01/2021 Td (adult),2 Lf Tetanus Toxo id, PF, Adsorbed 09/30/2009 Td, unspecified formulation 11/28/2001 Zoster live 06/24/2006 Zoster recombinant 06/15/2021,11/23/2020 Social History Tobacco Use Types Packs/Day Years Used Date Smoking Tobacco: Never Smokeless Tobacco: Never Tobacco Cessation:Counseling Given: Not Answered Alcohol Use Standard Drinks/Week Comments Not Currently [...] Orientation Straight 12/13/2020 11 :36 AM EDT Last Filed Vital Signs Vital Sign Reading Time Taken Comments Blood Pressure 118/62 12/04/2024 11:45 AM EDT Pulse 92 12/04/2024 11:45 AM EDT Temperature 36.2 C (97.1 F) 11/20/2024 2:33 PM EDT Respiratory Rate 16 11/15/2024 11:4 6 AM EDT Oxygen Saturation 97% 12/04/2024 11: 45 AM EDT Inhaled Oxygen Concentration - - Weight 74.8 kg (164 lb 12.8 oz) 025 11:45 AM EDT Height 167.6 cm (5' 5.98 ) 11/18/2024 8:19 AM ED T Body Mass Index 26.61 11/18/2024 8:19 AM EDT Plan of Treatment Upcoming Encounters Date Type Department Care Team (Late st Contact Info) Description 01/11/2025 2:00 PM EDT Office Visit [facility] [address] [place] [address] [place] [address] Ousmane Mohr DO [address] [facility], [address]nd [place] [address] 02/26/2025 10:30 AM EST Office Visit [facility] [address], [address] [place] [address] Hernesto Marquez, DO [address] [facility] [address] [place] [address] 03/18/2025 9:30 AM EST Office Visit [facility] [address] [place] [address] [place] [address] Ousmane Mohr, [address] [facility], [address]nd [place] [address] Health Maintenance Due Date Last Done Comments OSTEOPOROSIS SCREENING INITIAL (ONE-TIME) 2003 RSV VACCINE (1 - 1-dose 75+ series) 2013 INFLUENZA VACCINE (#1) 2024 , 01/13/2023, 01/13/2023, Additional history exists COVID-19 VACCINE ( season) 2024 12/26/2023, 01/13/2023, 01/11/2022, Additional history exists HEMOGLOBIN A1C 03/17/2025 09/15/2024, 03/08, 09/05/2023, Additional history exists LIPID PANEL 03/20/2025 03/20/2024, 02/08, 03/07/2023, Additional history exists DIABETIC EYE EXAM 04/08/2025 Postponed from 06/18/2022 (Not Clinically Appropriate) CREATININE LEVEL 11/15/2025 11/15/2024, 12/2024, 11/13/2024, Additional history exists POTASSIUM LEVEL 11/15/2025 11/15/2024, 0812/2024, 11/13/2024, Additional history exists DEPRESSION SCREENING 01/04/2026 01/04/2025, 01/05/20 25 Adult Td,Tdap Booster 06/01/2031 06/01/2021 , 09/30/2009, 11/28/2001 PNEUMOCOCCAL VACCINES (50+ years) Completed 01/22/2019, 02/25/2003 ZOSTER VACCINES Completed 06/15/2021, 11/06, 06/24/2006 HEPATITIS A VACCINES Aged Out No long er eligible based on patient's age to complete this topic HIB VACCINES Aged Out No longer eligi ble based on patient's age to complete this topic MENINGOCOCCAL VACCINES (ACWY) Aged Out No longer eligible based on patient's age to complete this topic MENINGOCOCCAL VACCINES (B) Aged Out N o longer eligible based on patient's age to complete this topic Medical Devices Implanted Type Area Water Filter Cleaner Device Identifier Shelf Expiration Date Model / Serial / Lot Bilateral Knee Replacements Device Fixation Ziptight Syndesmosis System Flare Codeop Ss - [id number] Implanted:Qty: 1 on 11/16/2021 by Jose A Mendes DO at [facility] Right: Ankle [employer] 01/20/2026 [id number] / / [id number] Device Fixation Ziptight Syndesmosis System Cellectarloop Ss - [id number] Implanted:Qty: 1 on 11/16/2021 by Jose A Mendes DO at [facility] Right: Ankle [employer] 11/09/2024 [id number] / / [id number] Procedures Procedure Name Priority Date/Time Associated Diagnosis Comments POCT GLUCOSE Routine 11/15/2024 12:08 PM EDT POCT GLUCOSE Routine 11/15/2024 7:42 AM EDT PHOSPHORUS Routine 11/15/2024 6:46 AM EDT MAGNESIUM Routine 11/15/2024 6:46 AM EDT COMPREHENSIVE METABOLIC PANEL Routine 11/15/2024 6:46 AM EDT CBC AND DIFFERENTIAL Routine 11/15/2024 6:46 AM EDT POCT GLUCOSE Routine 11/14/2024 7:55 PM EDT POCT GLUCOSE Routine 11/14/2024 4:34 PM EDT TTE COMPREHENSIVE Routine 11/14/2024 12: 19 PM EDT Paroxysmal atrial fibrillation POCT GLUCOSE Routine 11/14/2024 11:06 AM EDT COVID-19 RT PCR Routine 11/14/2024 8:56 AM EDT COVID-19 PCR ORDER Routine 11/14/2024 8: 56 AM EDT POCT GLUCOSE Routine 11/14/2024 8:54 AM EDT POCT GLUCOSE Routine 11/14/2024 8:53 AM EDT CBC Routine 11/14/2024 4:45 AM EDT PHOSPHORUS Routine 11/14/2024 4:45 AM EDT MAGNESIUM Routine 11/14/2024 4:45 AM EDT BASIC METABOLIC PANEL Routine 11/14/2024 4:45 AM EDT SEDIMENTATION RATE (ESR) Routine 11/14/2024 4:45 AM EDT C-REACTIVE PROTEIN Routine 11/14/2024 4: 45 AM EDT PROCALCITONIN Routine 11/14/2024 4:45 AM EDT LYME SCREEN WITH REFLEX TO WESTERN BLOT, BLOOD STAT 11/13/2024 11:44 PM EDT BABESIA SPECIES PCR STAT 11/13/2024 1 1:44 PM EDT Ehrlichia/anaplasma PCR STAT 11/13/2024 11:44 PM EDT ECG 12-LEAD STAT 11/13/2024 10:18 PM EDT LAB ADD ON STAT 11/13/2024 9:56 PM EDT LACTIC ACID (LACTATE) STAT 11/13/2024 9:56 PM EDT PT-INR STAT 11/13/2024 9:56 PM EDT BLOOD CULTURE, ROUTINE STAT 11/13/2024 9:56 PM EDT BLOOD CULTURE, ROUTINE STAT 11/13/2024 9:56 PM EDT XR CHEST PA AND LATERAL 2 VIEWS Routine 11/13/2024 9:48 PM EDT COVID PANDEMIC RESPIRATORY VIRAL ORDER (PRO) STAT 11/13/2024 9:32 PM EDT URINALYSIS W/REFLEX URINE CULTURE STAT 11/13/2024 9:32 PM EDT ECG 12-LEAD STAT 11/13/2024 8:28 PM EDT TROPONIN STAT 11/13/2024 7:26 PM EDT TROPONIN STAT 11/13/2024 6:38 PM EDT MAGNESIUM Routine 11/13/2024 4:36 PM EDT LFTS (HEPATIC PANEL) Routine 11/13/2024 4:36 PM EDT LIPASE Routine 11/13/2024 4:36 PM EDT BASIC METABOLIC PANEL STAT 11/13/2024 4:36 PM EDT CBC AND DIFFERENTIAL STAT 11/13/2024 4:36 PM EDT HEMOGLOBIN A1C Routine 09/15/2024 2:11 PM EDT Type 2 diabetes mellitus without complication, without long-term current use of insulin LIPID PANEL Routine 03/20/2024 7:26 AM EST Type 2 diabetes mellitus without complication, without long-term current use of insulin from Last 3 Months or Most Recently Relevant to Health Maintenance Results * (ABNORMAL) POCT Glucose (11/15/2024 12:08 PM EDT) Only the most recent of6 resultswithin the time period is included. Glucose, POCT 130(H) 70 - 100 mg/dL [facility] 11/15/2024 12:0 8 PM EDT 11/15/2024 12:10 PM EDT us Farhana Ernandez DO, MPH POINT OF CARE T EST ORDERABLES Final Result Performing Organization Address City/State/[facility] Co de Phone Number [address] [phone] * (ABNORMAL) Comprehensive metabolic panel (11/15/2024 6:46 AM EDT) [facility] SODIUM 136 133 - 146 mmol/L [facility] POTASSIUM 3.5 3.3 - 5.1 mmol/L [facility] CHLORIDE 101 96 - 108 mmol/L [facility] CO2 24 21 - 35 mmol/L [facility] BUN 14 6 - 19 mg/dL [facility] CREATININE 0.60 0.5 - 1.5 mg/dL [facility] GLUCOSE 94 70 - 99 mg/dL [facility] ALBUMIN 2.9(L) 3.9 - 4.8 g/dL [facility] TOTAL PROTEIN 5.6(L) 6.5 - 8.0 g/dL [facility] CALCIUM 8.7 8.4 - 10.3 mg/dL [facility] ALKALINE PHOSPHATASE 92 39 - 117 U/L [facility] TOTAL BILIRUBIN <0.2 0.0 - 1.2 mg/dL [facility] AST 27 0 - 37 U/L [facility] ALT 26 0 - 40 U/L [facility] GLOBULIN 2.7 1 - 4.8 g/dL [facility] EGFR 87 >59 mL/min/1.7 3m2 [facility] Comment:Estimated glomerular filtration rate calculated using the CKD-EPI refit equation. ANION GAP 15 10 - 20 mmol/L [facility] Blood 11/15/2024 6:46 AM EDT 11/15/2024 7:51 AM EDT us Farhana Ernandez DO, MPH LAB BLOOD ORDER CHARISMA Final Result [facility] [address] [place] [address] * (ABNORMAL) CBC and differential (11/15/2024 6:46 AM EDT) Only the most recent of2 resultswithin the time period is included. WBC 6.31 4.00 - 11.00 K/uL [facility] RBC 3.99(L) 4.00 - 5.20 M/uL [facility] HGB 12.3 12.0 - 16.0 g/dL [facility] HCT 37.6 36.0 - 46.0 % [facility] PLT 115(L) 150 - 450 K/uL [facility] MCV 94.2 80.0 - 100.0 fL [facility] MCH 30.8 27.0 - 31.0 pg [facility] MCHC 32.7 32.0 - 36.0 g/dL [facility] RDW 13.9 11.5 - 14.5 % [facility] MPV 12.9(H) 8.4 - 12.0 fL [facility] NRBC 0.00 0.00 /100 WBCs [facility] ABSOLUTE NRBC 0.00 0.00 K/uL [facility] DIFF METHOD Auto [facility] NEUTS 65.1 48.0 - 76.0 % [facility] LYMPHS 16.0(L) 18.0 - 41.0 % [facility] MONOS 14.6(H) 4.0 - 11.0 % [facility] EOS 3.0 0.0 - 5.0 % [facility] BASOS 0.3 0.0 - 1.5 % [facility] Granulocytes, immature (%) 1.0(H) 0.0 - 0.9 % [facility] ABSOLUTE NEUTS 4.11 1.92 - 7.60 K/uL [facility] ABSOLUTE LYMPHS 1.01 0.72 - 4.10 K/uL [facility] ABSOLUTE MONOS 0.92 0.16 - 1.10 K/uL [facility] ABSOLUTE EOS 0.19 0.00 - 0.50 K/uL [facility] ABSOLUTE BASOS 0.02 0.00 - 0.15 K/uL [facility] Granulocytes, immature 0.06 0.00 - 0.09 K/uL [facility] Blood 11/15/2024 6:46 AM EDT 11/15/2024 7:51 AM EDT Farhana Ernandez DO MPH LAB BLOOD ORDER CHARISMA Final Result Performing Organization Address [facility] de Phone Number [address] [address] * Phosphorus (11/15/2024 6:46 AM EDT) Only the most recent of2 resultswithin the time period is included. PHOSPHORUS 2.7 2.7 - 4.5 mg/dL [facility] Blood 11/15/2024 6:46 AM EDT 11/15/2024 7:51 AM EDT Farhana Ernandez DO, MPH LAB BLOOD ORDER CHARISMA Final Result Performing Organization Address [facility] Co de Phone Number [address] [address] * Magnesium (11/15/2024 6:46 AM EDT) Only the most recent of3 resultswithin the time period is included. MAGNESIUM 1.8 1.6 - 2.6 mg/dL [facility] Blood 11/15/2024 6:46 AM EDT 11/15/2024 7:51 AM EDT us Farhana Ernandez DO, MPH LAB BLOOD ORDER CHARISMA Final Result [address] [address] * TTE COMPREHENSIVE (11/14/2024 12:19 PM EDT) Body Surface Area 1.94 m2 Height 168 cm Weight 84 kg Systolic BP 123 mmHg Diastolic BP 92 mmHg Left Atrium Dimension Anterior-Posterior 33 15 - 40 mm Aortic Valve Mean Gradient 8 mmHg Aortic Valve Mean Gradient 8 mmHg Aortic Valve Time Velocity Integral 337.0 mm Aortic Valve Peak Velocity 1.9 m/s Aortic Valve Peak Gradient 15 mmHg Aortic Sinus Diameter 32 <40 mm Ascending Aorta Diameter 31 <36 mm Inferior Vena Cava Diameter 17 <21 mm Interventricular Septum Thickness 11 6 - 11 mm Left Ventricle Internal Diameter End Diastole 38 37 - 52 mm Left Ventricle Internal Diameter End Systole 25 <35 mm Left Ventricular Outflow Tract Diameter 20.0 mm LVOT VTI REST 242.0 mm Left Ventricular Outflow Tract Velocity 1.5 m/s Left Ventricular Outflow Tract Gradient at Rest 8 mmHg Left Ventricular Posterior Wall Thickness 10 6 - 11 mm Left Ventricle Ea Lateral Wave Speed 6.7 cm/s Left Ventricle Ea Septal Wave Speed 6.4 cm/s Ejection Fraction 71 50 - 75 Percent Left Ventricle A Wave Speed 152.0 cm/s Left Ventricle E Wave Speed 99.1 cm/s Mitral Valve Mean Gradient 4 mmHg Mitral Valve Peak Gradient 11 mmHg Mitral Valve Area Continuity Equation 1.60 cm2 Pulmonary Valve Peak Velocity 1.2 m/s Pulmonary Valve Peak Gradient 6 mmHg Tricuspid Valve Peak Velocity 2.7 m/s Raw LV EF% 57 % MV E/E' Tissue Velocity Lateral 14.79 Relative Wall Thickness 0.53 0.22 - 0.42 Left Ventricle indexed to BSA 64.9 g/m2 MV E/A ratio 0.7 MV E/e' septal 15.48 Left Ventricle E/e' Average 15.1 Aortic Valve Prosthetic Peak Gradient 15 mmHg Aortic Valve Sinus Index by BSA 16 mm/m2 Aorta Sinus Index by Height 1.90 cm/m Aorta Sinus CSA index by Height 4.78 cm2/m Ascending Aorta Index 16 mm/m2 Asc Aorta CSA Index by Height 4.49 cm2/m Mitral Valve Prosthetic Peak Gradient 11 mmHg Mitral Valve Prosthetic Mean Gradient 4 mmHg Right Ventricle to Right Atrium Pressure Gradient 29 mmHg Right Ventricle Peak Systolic Pressure (Assuming RAP 10) 39 mmHg [facility] CV ECHO TV RVSP (ASSUMING RAP OF 5) 34 mmHg RVSP (Exclusive of RAP) 29 mmHg Pulmonic Valve Prosthetic Peak Gradient 6 mmHg M[facility] CV AV DIMENSIONLESS INDEX (PEAK) - STRESS ECHO DOBUT - REST 0.79 Ascending Aorta Index 16 mm Aortic Sinus Index 16 mm Ascending Aorta Diameter 16 mm Aortic Valve Sinus Index 1 16 19 - 27 mm AO ASC DIAM BSA INDEX 15.98 Echo E/Ea 15.48 Right Ventricle Peak Systolic Pressure 32 mmHg Mitral Valve Deceleration Time 254 ms Right Atrium Pressure Estimated 3 mmHg Anatomical Region Laterality Modality Heart Ultrasound Narrative 11/14/2024 7:50 PM EDT Images from the original result were not included. - Rhythm is sinus - Normal LV size and systolic function - Discrete upper septal hypertrophy present - EF is estimated at 71% - Diastolic function is indeterminate - Left atrium is normal in size - Trace aortic valve regurgitation - Mild mitral valve regurgitation - RVSP calculated at 32 mmHg - No pericardial effusion present - IVC is normal Left Ventricle The left ventricle is normal in size. There is discrete upper septal hypertrophy. The LV ejection fraction is 71% (calculated via the single dimension method). LV diastolic function parameters are indeterminate in total. The E wave velocity is 99.1 cm/s. The A wave velocity is 152.0 cm/s. The E/A ratio is 0.7. The E/e' septal ratio is 15.48. The E/e' lateral ratio is 14.79. The average E/e' ratio is 15.1. The MV deceleration time is 254 ms. Right Ventricle The right ventricle is normal in size. Left Atrium The left atrium is normal in size. There are normal flow patterns in the pulmonary vein. Right Atrium The right atrium is normal in size. The IVC is normal in size with normal inspiratory collapse. Mitral Valve There is mitral valve thickening. There is mild mitral stenosis. The mitral valve peak and mean gradients are 11 mmHg and 4 mmHg respectively. There is mild mitral regurgitation. Tricuspid Valve The tricuspid valve appears normal. There is no tricuspid stenosis. The RV systolic pressure was calculated at 32 mmHg (using TR peak velocity of 2.7 m/s and assuming an RA pressure of 3 mmHg). Aortic Valve The aortic valve is tricuspid. There is leaflet thickening. There is no aortic stenosis. There is trace aortic regurgitation. The visualized portions of the thoracic aorta appear normal in size. Pulmonic Valve The pulmonic valve is suboptimally visualized. There is no pulmonic stenosis. Pericardium There is no pericardial effusion. General Findings The image quality was good (2). Technique(s) used in the evaluation: Color flow Doppler and Spectral Doppler. Comparison Findings Compared to prior TTE on 01/21/2020, No acute changes compared to echo from January, IAS/IVS The interatrial septum appears normal. Malcolm Jenkins DO CV ECHO ORDERABLES Final Resu lt * COVID-19 RT-PCR (11/14/2024 8:56 AM EDT) Pathologist [facility] SPECIMEN SOURCE/DESCRIPTION NASAL [facility] SARS-CoV 2 (COVID-19) PCR Negative Negative [facility] Comment: SARS-CoV-2 not detected Negative results do not preclude SARS-CoV-2 infection and should not be used as the sole basis for patient management decisions. Negative results must be combined with clinical observations, patient history, and epidemiological information. This test has been authorized by the FDA under an Emergency Use Authorization (EUA) for use by authorized laboratories. 11/14/2024 8:56 AM EDT 11/14/2024 9:01 AM EDT Result [facility] Farhana Ernandez DO, MPH BODY FLUIDS AND STOOLS ORDERABLES Final Result [facility] [address] [place] [address] * COVID-19 PCR Order (11/14/2024 8:56 AM EDT) Pathologist [facility] COVID Testing Status SWAB [facility] Other (Nasal swab) 11/14/2024 8:56 AM EDT 11/14/2024 9:01 AM EDT Result [facility] Farhana Ernandez DO, MPH BODY FLUIDS AND STOOLS ORDERABLES Final Result [address] [address] * (ABNORMAL) POCT Glucose (11/14/2024 8:54 AM EDT) Glucose 128(A) 70 - 100 mg/dL 11/14/2024 8:54 AM EDT Malcolm Jenkins DO POINT OF CARE TEST ORDERABLES Final Result * Procalcitonin (11/14/2024 4:45 AM EDT) Procalcitonin 0.16 0.00 - 0.25 ng/mL [facility] Comment: <=0.25 ng/mL: Bacterial pneumonia is unlikely. <0.5 ng/mL: Low likelihood of systemic bacterial infection / sepsis. Localized infection is possible. 0.5-2.0 ng/mL: Systemic bacterial infection / sepsis is possible, but other conditions can induce PCT levels in this range as well (e.g., pancreatitis,severe trauma, circulatory shock, surgery, devi, inhalation injury.) >2.0 ng/mL: Systemic bacterial infection / sepsis is likely. Additional information can be found in the [facility] Procalcitonin Guidelines, available at http://handbook.mgb.org/3817/Content/4-138-251 Blood 11/14/2024 4:45 AM EDT 11/14/2024 4:51 AM EDT Malcolm Jenkins DO LAB BLOOD ORDERABLES Final Re sult [address] [address] * Sedimentation rate (ESR) (11/14/2024 4:45 AM EDT) ESR 17 0 - 30 mm/h [facility] Blood 11/14/2024 4:45 AM EDT 11/14/2024 4:51 AM EDT Malcolm Jenkins LAB BLOOD ORDERABLES Final Re sult Performing Organization Address [facility] Co de Phone Number [address] [address] * (ABNORMAL) CBC (11/14/2024 4:45 AM EDT) WBC 7.39 4.00 - 11.00 K/uL [facility] RBC 3.83(L) 4.00 - 5.20 M/uL [facility] HGB 12.1 12.0 - 16.0 g/dL [facility] HCT 35.9(L) 36.0 - 46.0 % [facility] PLT 112(L) 150 - 450 K/uL [facility] MCV 93.7 80.0 - 100.0 fL [facility] MCH 31.6(H) 27.0 - 31.0 pg [facility] MCHC 33.7 32.0 - 36.0 g/dL [facility] RDW 13.9 11.5 - 14.5 % [facility] MPV 12.4(H) 8.4 - 12.0 fL [facility] NRBC 0.00 0.00 /100 WBCs [facility] ABSOLUTE NRBC 0.00 0.00 K/uL [facility] Blood 11/14/2024 4:45 AM EDT 11/14/2024 4:51 AM EDT Malcolm Jenkins LAB BLOOD ORDERABLES Final Re sult Performing Organization Address [facility]/ZIP Co de Phone Number [address] [address] * (ABNORMAL) C-Reactive Protein (11/14/2024 4:45 AM EDT) C REACTIVE PROTEIN 114.4(H) 0.0 - 4.0 mg/L [facility] Blood 11/14/2024 4:45 AM EDT 11/14/2024 4:51 AM EDT Malcolm Bharathi Jenkins LAB BLOOD ORDERABLES Final Re sult Performing Organization Address [facility] de Phone Number [address] [address] * (ABNORMAL) Basic metabolic panel (11/14/2024 4:45 AM EDT) Only the most recent of2 resultswithin the time period is included. SODIUM 134 133 - 146 mmol/L [facility] CHLORIDE 97 96 - 108 mmol/L [facility] POTASSIUM 3.7 3.3 - 5.1 mmol/L [facility] CO2 23 21 - 35 mmol/L [facility] BUN 20(H) 6 - 19 mg/dL [facility] CREATININE 0.70 0.5 - 1.5 mg/dL [facility] GLUCOSE 155(H) 70 - 99 mg/dL [facility] CALCIUM 8.5 8.4 - 10.3 mg/dL [facility] EGFR 84 >59 mL/min/1.7 3m2 [facility] Comment:Estimated glomerular filtration rate calculated using the CKD-EPI refit equation. ANION GAP 18 10 - 20 mmol/L [facility] Blood 11/14/2024 4:45 AM EDT 11/14/2024 4:51 AM EDT Malcolm Jenkins DO LAB BLOOD ORDERABLES Final Re sult Performing Organization Address [facility] Co de Phone Number [address] [address] * Babesia species PCR (11/13/2024 11:44 PM EDT) B.Microti PCR Negative Negative [facility] D[facility] OF LAB MED AND PAT+ B.Duncani PCR Negative Negative [facility] MED [facility] PAT+ B.Divergens/MO-1 PCR Negative Negative [facility] DPT OF LAB MED AND PAT+ Comment: (NOTE) ADDITIONAL INFORMATION This test was developed and its performance characteristics determined by [facility] in a manner consistent with CLIA requirements. This test has not been cleared or approved by the U.S. Food and Drug Administration. Blood 11/13/2024 11:4 4 PM EDT 11/14/2024 12:01 AM EDT Mohan Aguilar MD LAB BLOOD ORDERABLES Final Resu lt Performing Organization Address [facility] Co de Phone Number [facility] DPT OF LAB MED AND PAT+ [address] [place] [address] * Ehrlichia/anaplasma PCR (11/13/2024 11:44 PM EDT) Pathologist [facility] ANAPLASMA PHAGOCYTO Negative Negative [facility] DPT OF LAB MED AND PAT+ EHRLICHIA CHAFFEENS Negative Negative [facility] DPT OF LAB MED AND PAT+ EHRL EWINGII/CANIS Negative Negative [facility] DPT OF LAB MED AND PAT+ EHRL MURIS-LIKE Negative Negative [facility] DPT OF LAB MED AND PAT+ Comment: (NOTE) ADDITIONAL INFORMATION This test was developed and its performance characteristics determined by [facility] in a manner consistent with CLIA requirements. This test has not been cleared or approved by the U.S. Food and Drug Administration. Blood 11/13/2024 11:4 4 PM EDT 11/14/2024 12:01 AM EDT us Mohan Aguilar MD LAB BLOOD ORDERABLES Final Resu lt Performing Organization Address City/[facility] Co de Phone Number [facility] DPT OF LAB MED AND PAT+ [address] [place] [address] * Lyme Screen with Reflex to Immunoblot, Blood (11/13/2024 11:44 PM EDT) Lyme AB IgG Negative Negative [facility] Lyme AB IgM Negative Negative [facility] Blood 11/13/2024 11:4 4 PM EDT 11/14/2024 12:01 AM EDT Mohan Aguilar MD LAB BLOOD ORDERABLES Final Resu lt Performing Organization Address City/[facility]/ZIP Co de Phone Number [address] [address] * ECG 12-LEAD (11/13/2024 10:18 PM EDT) Only the most recent of2 resultswithin the time period is included. Ventricular Rate EKG/MIN 79 BPM [facility] Atrial Rate 79 BPM [facility] CA Interval 156 ms [facility] QRS Duration 90 ms [facility] QT Interval 386 ms [facility] QTC Interval 442 ms [facility] P [place] 67 degrees [facility] R Wave [place] -14 degrees [facility] T Wave [place] 66 degrees [facility] 11/13/2024 10:1 8 PM EDT 11/14/2024 3:56 PM EDT Narrative [facility] - 11/14/2024 3:56 PM EDT Sinus rhythm with Premature supraventricular complexes Low voltage QRS Septal infarct , age undetermined Abnormal ECG When compared with ECG of 13-Nov-2024 20:28, Sinus rhythm has replaced Atrial fibrillation Septal infarct is now Present QT has lengthened Confirmed by Landen MONTOYA ([id number]) on 11/14/2024 3:56:11 PM us Mohan Aguilar MD ECG ORDERABLES Final Result Performing Organization Address City/[facility]/ZIP Co de Phone Number [facility] * Blood Culture, Routine (11/13/2024 9:56 PM EDT) Only the most recent of2 resultswithin the time period is included. Special Requests None 11/13/2024 9:23 PM EDT [facility] BLOOD CULTURE NO GROWTH 5 DAYS 11/18/2024 10:24 PM EDT [facility] Blood (Blood) 11/13/2024 9:5 6 PM EDT 11/13/2024 10:13 PM EDT Mohan Aguilar MD MICROBIOLOGY - GENERAL ORDERABL ES Final Result Performing Organization Address [facility]/ZIP Co de Phone Number [address] [address] * (ABNORMAL) PT-INR (11/13/2024 9:56 PM EDT) PT 14.1(H) 10.2 - 12.9 sec [facility] INR 1.1 0.9 - 1.1 [facility] Comment:Therapeutic range fo r oral Vitamin K antagonists: 2.0-3.5 Blood 11/13/2024 9:56 PM EDT 11/13/2024 10:17 PM EDT us Mohan Aguilar MD LAB BLOOD ORDERABLES Final Resu lt Performing Organization Address [facility]/ZIP Co de Phone Number [address] [address] * Lab Add On: LFT, lipase. magnesium (11/13/2024 9:56 PM EDT) TEST REQUESTED LFT, LIPASE. MAGNESIUM [facility] Comments (Chemistry) Add on order being processed. Floor or provider will be notified if testing cannot be performed [facility] 11/13/2024 9:56 PM EDT 11/13/2024 10:17 PM EDT us Mohan Aguilar MD LAB BLOOD ORDERABLES Final Resu lt Performing Organization Address City/[facility]/ZIP Co de Phone Number [address] [address] * Lactate (11/13/2024 9:56 PM EDT) LACTATE 1.64 0.50 - 2.20 mmol/L [facility] Blood 11/13/2024 9:56 PM EDT 11/13/2024 10:00 PM EDT us Mohan Aguilar MD LAB BLOOD ORDERABLES Final Resu lt [address] [address] * XR CHEST PA AND LATERAL 2 VIEWS (11/13/2024 9:48 PM EDT) Anatomical Region Laterality Modality Chest Computed Radiogr aphy 11/13/2024 11:5 4 PM EDT Impressions 11/13/2024 11:56 PM EDT Subtle patchy left basilar opacity which may reflect atelectasis/aspiration or early pneumonia given the provided history of infection. Narrative 11/13/2024 11:56 PM EDT XR CHEST PA AND LATERAL 2 VIEWS Referring clinician's provided indication for this examination in [facility]: Infection COMPARISON: Chest x-ray from November 18, 2021 FINDINGS: Devices/Tubes/Lines: None. Lungs: Subtle patchy left basilar opacity. No overt pulmonary edema. Pleura: No pleural effusion or pneumothorax. Heart/Mediastinum: Unchanged in appearance. Thoracic aortic atherosclerotic disease. Bones/Soft Tissues: Degenerative changes of the thoracic spine. Degenerative change of the bilateral shoulders. Procedure Note Malcolm Khan MD - 11/13/2024 XR CHEST PA AND LATERAL 2 VIEWS Referring clinician's provided indication for this examination in [facility]:Infection COMPARISON: Chest x-ray from November 18, 2021 FINDINGS: Devices/Tubes/Lines: None. Lungs: Subtle patchy left basilar opacity. No overt pulmonary edema. Pleura: No pleural effusion or pneumothorax. Heart/Mediastinum: Unchanged in appearance. Thoracic aorticatherosclerotic disease. Bones/Soft Tissues: Degenerative changes of the thoracic spine.Degenerative change of the bilateral shoulders. IMPRESSION: Subtle patchy left basilar opacity which may reflectatelectasis/aspiration or early pneumonia given the provided history ofinfection. us Mohan Aguilar MD IMG XR CHEST Final Result * (ABNORMAL) Urinalysis w/reflex Urine Culture (11/13/2024 9:32 PM EDT) COLOR Yellow Yellow [facility] CLARITY Clear [facility] GLUCOSE Negative Negative [facility] BILI Negative Negative [facility] KETONES Negative Negative [facility] SPECIFIC GRAVITY 1.020 1.005 - 1.030 [facility] BLOOD Trace(A) Negative [facility] PH 6.0 5.0 - 8.0 [facility] Protein-UA Trace(A) Negative [facility] NITRITE Negative Negative [facility] Leukocyte esterase, ur Negative Negative [facility] Urine (Urine) 11/13/2024 9:3 2 PM EDT 11/13/2024 11:36 PM EDT Mohan Aguilar MD URINE ORDERABLES Final Result Performing Organization Address [facility] de Phone Number [address] [address] * COVID Pandemic Respiratory Viral Order (PRO) (11/13/2024 9:32 PM EDT) Test Ordered Rapid COVID has been ordered [facility] Specimen Source/Description NASAL [facility] SARS-CoV 2 (COVID-19) PCR Not Detected Not Detected [facility] Comment: SARS-CoV-2 not detected Negative results do not preclude SARS-CoV-2 infection and should not be used as the sole basis for patient management decisions. Negative results must be combined with clinical observations, patient history, and epidemiological information. Other (Nasopharyngeal swab) 11/13/2024 9:32 PM EDT 11/13/2024 10:29 PM EDT Mohan Aguilar MD BODY FLUIDS AND STOOLS ORDERABL ES Final Result Performing Organization Address [facility] Co de Phone Number [address] [address] * (ABNORMAL) Troponin (11/13/2024 7:26 PM EDT) Only the most recent of2 resultswithin the time period is included. Troponin-T, HS Gen5 18(H) 0 - 9 ng/L [facility] Blood 11/13/2024 7:26 PM EDT 11/13/2024 7:30 PM EDT us Jeana Pedroza PA-C LAB BLOOD ORDERABLES Final Result Performing Organization Address City/[facility]/ZIP Co de Phone Number [address] [address] * (ABNORMAL) LFTs (hepatic panel) (11/13/2024 4:36 PM EDT) ALKALINE PHOSPHATASE 99 39 - 117 U/L [facility] TOTAL BILIRUBIN 0.4 0.0 - 1.2 mg/dL [facility] DIRECT BILIRUBIN 0.1 0.0 - 0.2 mg/dL [facility] Bilirubin (Indirect) NOT CALCULATED 0 - 1.5 mg/dL [facility] AST 28 0 - 37 U/L [facility] ALT 22 0 - 40 U/L [facility] TOTAL PROTEIN 6.8 6.5 - 8.0 g/dL [facility] ALBUMIN 3.5(L) 3.9 - 4.8 g/dL [facility] GLOBULIN 3.3 1 - 4.8 g/dL [facility] A/G Ratio 1.06 1.00 - 4.80 RATIO [facility] 11/13/2024 4:36 PM EDT 11/13/2024 4:46 PM EDT us Main Farnsworth MD LAB BLOOD ORDERABLES Final Result Performing Organization Address City/[facility]/ZIP Co de Phone Number [address] [address] * Lipase (11/13/2024 4:36 PM EDT) LIPASE 17 16 - 63 U/L [facility] 11/13/2024 4:36 PM EDT 11/13/2024 4:46 PM EDT us Main Farnsworth MD LAB BLOOD ORDERABLES Final Result Performing Organization Address [facility]/ZIP Co de Phone Number [address] [address] * (ABNORMAL) Hemoglobin A1c (09/15/2024 2:11 PM EDT) HEMOGLOBIN A1C 6.6(H) 4.3 - 5.8 % [facility] Blood 09/15/2024 2:11 PM EDT 09/15/2024 2:20 PM EDT us Ousmane Mohr DO LAB BLOOD ORDERABLES Fi nal Result Performing Organization Address [facility] Co de Phone Number [address] [address] * Lipid panel (03/20/2024 7:26 AM EST) HDL 50 mg/dL [facility] Comment: Interpretation <40 mg/dL: Low HDL cholesterol (major risk factor for CHD) Greater than or equal to 60 mg/dL: High HDL cholesterol ( negative risk factor for CHD) HDL - cholesterol is affected by a number of factors, e.g. smoking, excerise, hormones, sex and age. CHOLESTEROL 191 0 - 240 mg/dL [facility] TRIGLYCERIDES 110 30 - 160 mg/dL [facility] LDL 119 50 - 129 mg/dL [facility] Comment: LDL levels in terms of risk for coronary heart disease: <100 mg/dL: Optimal 100-129 mg/dL: Near or above optimal 130-159 mg/dL: Borderline high 160-189 mg/dL: High >190 mg/dL: Very High CARDIAC RISK RATIO 3.8 3.3 - 4.4 [facility] Blood 03/20/2024 7:26 AM EST 03/20/2024 7:47 AM EST Ousmane Mohr DO LAB BLOOD ORDERABLES Fi nal Result [facility] [address] [place] [address] from Last 3 Months or Most Recently Relevant to Health Maintenance Insurance MEDICARE PART A & B [employer] MEDEX SUPPLEMENT MEDICARE PART A & B [employer] MEDEX SUPPLEMENT MEDICARE PART A & B [employer] MEDEX SUPPLEMENT MEDICARE PART A & B [employer] MEDEX SUPPLEMENT MEDICARE PART A & B [employer] MEDEX SUPPLEMENT MEDICARE PART A & B [facility] MEDEX SUPPLEMENT MEDICARE PART A & B [facility] MEDEX SUPPLEMENT MEDICARE PART A & B [facility] MEDEX SUPPLEMENT MEDICARE PART A & B [facility] MEDEX SUPPLEMENT Advance Directives For more information, please contact: [phone] (9AM - 5PM [place], Saturday-Saturday) Documents on File Type Date Recorded Patient Laborer [facility] Expl anation Healthcare Proxy 11/21/2021 1:41 PM health care proxy Healthcare Proxy 11/21/2021 12:03 PM * Full Code (Latest Code Status on File) Date Activated Date Inactivated Comments 11/14/2024 2:32 AM Question Answer Comments Code Status Confirmed With: Patient * Full Code Date Activated Date Inactivated Comments 11/16/2021 8:05 PM 11/14/2024 2:32 AM Question Answer Comments Code Status Confirmed With: Patient Care Teams Patch Finisher Relationship Specialty Start Date End Date Ousmane Mohr DO [address] [place] [phone] PCP - General Internal Medicine 12/08/21 Ousmane Mohr DO [address] [place] [phone] Insurance Assigned Provider 07/13/23 Keri Knox, RN [address] [place] [address] [employer] Out And Out Cigar Maker Hand 12/31/22 Additional Source Comments The information contained in this document represents components of the legal health record. It is not the complete legal health record.[facility]
--- OUTSIDE RECORDS SUMMARY | 2025-01-05 13:07 | XMS_ITS | Encounter Summary ---
Author Organization [facility] Address [address] [place] [address] Phone Care Team Providers Care Guest Services Manager Name Role Phone Evaristo Mohr DO Primary Care Provider Evaristo Mohr DO Unavailable [phone] Keri Knox RN Unavailable [phone] Encounter Details Date Type Department Care Team (Late st Contact Info) Description 01/04/2025 Enrollment [facility] Physicians - Primary Care [address] [place] [address] Social History Tobacco Use Types Packs/Day Years [...] housing situation today? I have juan alberto cedillo 11/13/2024 How many times have you move [...] EDT Office Visit [facility] [address] [place] [address] [place] [address] Evaristo Mohr, [address] [facility], 2nd Floor [place] [address] 02/26/2025 10:30 AM EST Office Visit [facility] [address] [facility] 3rd Floor, [address] [place] [address] Hernesto Marquez DO [address] [facility] [address] [place] [address] 03/18/2025 9:30 AM EST [facility] [address] [place] [address] [place] [address] Evaristo Mohr, [address] [facility], [address] [place] [address] documented as of this encounter Visit Diagnoses Not on filedocumented in this encounter Additional Health Concerns Assessment Noted Time PHQ-9 Depression Total Score: 7 01/05/20 1:26 PM EDT PHQ-2 Depression Total Score: 2 01/05/20 1:26 PM EDT documented as of this encounter Care Teams Guest Services Manager Relationship Specialty Start Date End Date Evaristo Mohr DO [address] [place] [address], [address] [place] [address] PCP - General Internal Medicine 12/08/21 Evaristo Mohr DO [address] [place] [address] Insurance Assigned Provider 07/13/23 Keri Knox, RN [address] [place] [phone] [employer] Consumer Safety Inspector 12/31/22 documented as of this encounter Additional Source Comments The information contained in this document represents components of the legal health record. It is not the complete legal health record.[facility]
--- OUTSIDE RECORDS SUMMARY | 2025-01-05 13:07 | XMS_ITS | Encounter Summary ---
Author Organization [facility] Address [address] [facility] [address] [place] [address] Phone Care Team Providers Care Financial Recording Clerk Name Role Phone Evaristo Mohr DO Primary Care Provider Evaristo Mohr DO Unavailable [phone] Keri Knox RN Unavailable [phone] Encounter Details Date Type Department Care Team (Late st Contact Info) Description 07/08/2024 Procedure Pass [facility], Ct Scan - [address] [id number] Social History Tobacco Use Types Packs/Day Years Used Date Smoking Tobacco: Never Smokeless Tobacco: Never Alcohol Use Standard Drinks/Week Comments Not Currently 0 (1 standard drink = 0.6 oz pur e alcohol) Education Answer Date Recorded Are you interested in more education? Not on shahram e 08/04/2022 Are you concerned about learning? Not on file 08/04/2022 No 08/04/2022 No 08/04/2022 Digital Access Answer Date Recorded No 09/02/2022 No 09/02/2022 Reliable internet access at home? Not on file 09/02/2022 Device with a working camera? Not on file Intimate Partner Violence Answer Date R ecorded Are you denied basic needs s uch as food, clothing, or medical care? No 07/08/2024 In the past 12 months have y ou been in a relationship with a person who hurts, threatens, or tries to control you? No 07/08/2024 Are you denied basic needs s uch as food, clothing, or medical care? No 07/08/2024 In the past 12 months have y ou been in a relationship with a person who hurts, threatens, or tries to control you? No 07/08/2024 Comments No Sex and Gender Information Value Date Recorded Sex Assigned at Female 12/13/2020 11:36 AM EDT Legal Sex Female 6:32 PM EST Gender Identity Female 12/13/2020 11:36 AM EDT Sexual Orientation Straight 12/13/2020 11 :36 AM EDT documented as of this encounter Functional Status * Calculated C-SSRS Risk Score (Lifetime/Recent) Answer Date of Assessment Author No Risk Indicated 07/08/2024 3:34 PM EDT Elif López, SIOBHAN * [place] Suicide Severity Rating Scale (Screener/Recent Self-Report) Question Answer Date of Assessment Author 1. Wish to be (Past 1 Month) No 07/08/2024 3:34 PM EDT Elif López RN 2. Non-Specific Active Suici guero Thoughts (Past 1 Month) No 07/08/2024 3:34 PM EDT Elif López RN 6. Suicidal Behavior (Lifetime) No 3:34 PM EDT Elif López, SIOBHAN documented as of this encounter Plan of Treatment Upcoming Encounters Date Type Department Care Team (Late st Contact Info) Description 01/11/2025 2:00 PM EDT Office Visit [facility] [address] [place] [address] [place] [address] Evaristo Mohr, DO [address] [facility], 2nd [place] [address] [email or web address] 02/26/2025 10:30 AM EST Office Visit [facility] [address] [place] [address] Dr [address] Floor, [address] [place] [address] Hernesto Marquez, DO [address] [facility] [address] [place] [address] 03/18/2025 9:30 AM EST Office Visit [facility] [address] [place] [address] [place] [address] Evaristo Mohr DO [address] [place] [address] documented as of this encounter Visit Diagnoses Not on filedocumented in this encounter Additional Health Concerns Infection Onset Date Last Indicated Resolved Time CoV-Risk 11/13/2024 11/13/2024 11/24/2024 1:21 AM EDT Assessment Noted Time PHQ-9 Depression Total Score: 8 12/14/19 21 12:03 PM EDT PHQ-2 Depression Total Score: 1 03/15/20 24 9:34 PM EST documented as of this encounter Care Teams Financial Recording Clerk Relationship Specialty Start Date End Date Evaristo Mohr DO [address] [place] [phone] PCP - General Internal Medicine 12/08/21 Evaristo Mohr DO [address] [place] [id number] Insurance Assigned Provider 07/13/23 Keri Knox, RN [address] [place] [id number] [employer] Recreation Superintendent 12/31/22 documented as of this encounter Additional Source Comments The information contained in this document represents components of the legal health record. It is not the complete legal health record.[facility]
--- OUTSIDE RECORDS SUMMARY | 2025-01-05 13:07 | XMS_ITS | Encounter Summary ---
Author Organization [facility] Address [address] [place] [address] Phone Care Team Providers Care Print Support Specialist Name Role Phone Landen Guevara MD Unavailable [phone] Bessie Hamilton RNpurchase order checker Provider [phone] Ros Hernandez MD Primary Care Provider [email or web address] Ros Hernandez MD Unavailable [email or web address] Evaristo Mohr DO Primary Care Provider Evaristo Mohr DO Unavailable [phone] Keri Knox RN Unavailable [phone] Encounter Details Date Type Department Care Team (Late st Contact Info) Description 04/18/2020 Ancillary Orders Non-Invasive Cardiology 30 [place] [address] Ros Hernandez MD [email or web address] Dizziness; Nausea Social History Tobacco Use Types Packs/Day Years Used Date Smoking Tobacco: Never Smokeless Tobacco: Never Comments No Sex and Gender Information Value [...] Description 01/11/2025 2:00 PM EDT Office Visit [address] [place] [address] Evaristo Mohr, 170 [facility], 2nd [place] [address] [email or web address] 02/26/2025 10:30 AM EST Office Visit [facility] [address] 3rd Floor, [address] [place] [address] Hernesto Marquez DO [address] [facility] [address] [place] [address] [email or web address] 03/18/2025 9:30 AM EST Office Visit [address] [place] [address] Evaristo Mohr, 170 [facility], 2nd [place] [address] [email or web address] documented as of this encounter Results * NC Stress Result for Nuclear Stress Test (04/18/2020 11:51 AM EST) Max BP Systolic 220 mmHg COUNTS INCLUDE 234 [facility] Max BP Diastolic 94 mmHg COUNTS INCLUDE 234 [facility] AT THE [facility] Max HR 126 BPM COUNTS INCLUDE 234 B[facility]S AT THE [facility] Resting HR 78 BPM COUNTS INCLUDE 234 B[facility]S AT THE [facility] Resting BP Systolic 144 mmHg COUNTS INCLUDE 234 [facility]S AT THE [facility] Resting BP Diastolic 86 mmHg COUNTS INCLUDE 234 [facility] AT THE [facility] Peak METS 5.0 METS COUNTS INCLUDE 234 [facility] AT [facility] Peak HR 126 BPM COUNTS INCLUDE 234 [facility] AT THE [facility] Anatomical Region Laterality Modality Heart Other 04/18/2020 10:4 9 AM EST 04/18/2020 11:49 AM EST Narrative 04/18/2020 4:19 PM EST Response to Stress The patient exercised for minutes seconds, achieving 5.0 METS at peak exercise. Baseline blood pressure was 144/86 mmHg, and baseline heart rate was 78 bpm. The patient achieved a peak heart rate of 126 bpm, which is% of their maximum predicted heart rate. REPORT - Pt exercised for 4:01 min on a ANNE protocol achieving 5 METS. Test terminated due to fatigue. Baseline resting HR was 72. Max heart rate achieved was 126 (91% MPHR). 1. EKG - Baseline EKG showed normal sinus rhythm, poor R wave progression. No ischemic EKG changes with exercise. 2. SYMPTOMS - no chest pain 3. EXERCISE PHYSIOLOGY - hypertensive BP response to exercise. BP at baseline was 144/86, up to 220/84 in early exercise and 152/86 on DC from stress lab. Average functional capacity for age. 4. ARRHYTHMIAS - occasional PVCs Conclusion - normal stress test. Nuclear images pending and will be reported separately. Jared Alvarado SPECIAL NEEDS NANNY with Dr Alexandre . us Ros Hernandez MD CV NM CARDIAC Final Result documented in this encounter Visit Diagnoses Diagnosis Dizziness Dizziness and giddiness Nausea Nausea alone Dizziness Dizziness and giddiness Nausea Nausea alone documented in this encounter Additional Health Concerns Infection Onset Date Last Indicated Resolved Time CoV-Exposed Comment:Auto-removed when mother's CoV-Risk was resolved 04/04/2021 04/04/2021 04/25/2021 3:40 PM EST CoV-Risk 04/26/2021 04/26/2021 05/06/2021 1:23 AM EST CoV-Risk 05/26/2021 05/26/2021 06/05/2021 1:22 AM EST MDR-GN 07/18/2021 12/15/2021 12/22/2022 1:23 AM EDT CoV-Exposed Comment:Added per Home Health documentation 02/02/2022 02/07/2022 02/13/2022 1:[address] CoV-Exposed Comment:Added per Home Health documentation 02/13/2022 02/13/2022 02/24/2022 1:[address] CoV-Risk 11/13/2024 11/13/2024 11/24/2024 1:21 AM EDT Assessment Noted Time PHQ-2 Depression Total Score: 1 01/23/20 3:25 PM EDT documented as of this encounter Care Teams Print Support Specialist Relationship Specialty Start Date End Date Bessie Hamilton RN [address] [place] [address] [email or web address] PCP - General Internal Medicine 11/23/19 05/29/20 Ros Hernandez MD [email or web address] PCP - General Family Medicine 05/30/20 12/07/21 Evaristo Mohr DO [address] [place] [address] [email or web address] PCP - General Internal Medicine 12/08/21 Landen Guevara MD [address] [place] [address] [email or web address] Insurance Assigned Provider 06/12/15 07/16/20 Ros Hernandez MD [email or web address] Insurance Assigned Provider 07/16/20 07/14/22 Evaristo Mohr DO [address] [place] [address] [email or web address] Insurance Assigned Provider 07/13/23 Keri Knox, RN [address] [place] [phone] [email or web address] iCMP Telephone Betting Clerk 12/31/22 documented as of this encounter Additional Source Comments The information contained in this document represents components of the legal health record. It is not the complete legal health record.[facility]
--- OUTSIDE RECORDS SUMMARY | 2025-01-05 13:07 | XMS_ITS | Encounter Summary ---
Author Organization [facility] Address [address] [place] [address] Phone Care Team Providers Care Supervisor Frame Assembly Name Role Phone Evaristo Mohr DO Primary Care Provider Evaristo Mohr DO Unavailable Keri Knox RN Unavailable Encounter Details Date Type Department Care Team (Late st Contact Info) Description 11/18/2024 Procedure Pass [facility] [address] [place], [place] [id number] Social History Tobacco Use Types Packs/Day Years [...] EDT Office Visit [facility] [address] [place] [address] [place] [address] Evaristo Mohr DO 170 [facility], 2nd Floor [place] [address] 02/26/2025 10:30 AM EST Office Visit [facility] [address] [place] [address] 3rd Floor, [address] [place] [address] Hernesto Marquez, DO [address] [address] 03/18/2025 9:30 AM EST Office Visit [facility] [address] [place] [address] [place] [address] Evaristo Mohr, [address] [address] documented as of this encounter Visit Diagnoses Not on filedocumented in this encounter Additional Health Concerns Infection Onset Date Last Indicated Resolved Time CoV-Risk 11/13/2024 11/13/2024 11/24/2024 1:21 AM EDT Assessment Noted Time PHQ-9 Depression Total Score: 8 12/14/19 21 12:03 PM EDT PHQ-2 Depression Total Score: 1 03/15/20 24 9:34 PM EST documented as of this encounter Care Teams Supervisor Frame Assembly Relationship Specialty Start Date End Date Evaristo Morh DO [address] [place] [address] PCP - General Internal Medicine 12/08/21 Evaristo Mohr DO [address] [place] [address] Insurance Assigned Provider 07/13/23 Keri Knox, RN [address] [place] [address] iCMP Educational Assistant Teacher 12/31/22 documented as of this encounter Additional Source Comments The information contained in this document represents components of the legal health record. It is not the complete legal health record.[facility]
--- OUTSIDE RECORDS SUMMARY | 2025-01-05 13:07 | XMS_ITS | Encounter Summary ---
Author Organization [facility] Address [address] [facility] [address] [place] [address] Phone Care Team Providers Care Preparation Room Worker Name Role Phone Landen Guevara MD Unavailable [phone] Bessie Hamilton RNlife assurance representative Provider [phone] Ros Hernandez MD Primary Care Provider [email or web address] Ros Hernandez MD Unavailable [email or web address] Evaristo Mohr DO Primary Care Provider Evaristo Mohr DO Unavailable [phone] Keri Knox RN Unavailable [phone] Encounter Details Date Type Department Care Team (Late st Contact Info) Description 01/27/2020 Procedure Pass [facility] 30 [place] [address] Social History Tobacco Use Types Packs/Day Years [...] Encounters Date Type Department Care Team (Late Contact Info) Description 01/11/2025 2:00 PM EDT Office Visit [address] [place] [address] Evaristo Mohr, DO 170 [facility], 2nd [place] [address] 02/26/2025 10:30 AM EST Office Visit [facility] [address] [place] [address] 3rd Floor, [address] [place] [address] Hernesto Marquez DO 22 [facility] [address] [place] [address] 03/18/2025 9:30 AM EST Office Visit [address] [place] [address] Evaristo Mohr, 170 [facility], 2nd [place] [address] documented as of this encounter Visit Diagnoses [...] Time PHQ-2 Depression Total Score: 1 01/23/20 19 3:25 PM EDT documented as of this encounter Care Teams Preparation Room Worker Relationship Specialty Start Date End Date Bessie Hamilton RN [address] [place] [address] PCP - General Internal Medicine 11/23/19 05/29/20 Ros Hernandez MD [email or web address] PCP - General Family Medicine 05/30/20 12/07/21 Evaristo Mohr DO [address] [place] [address] [email or web address] PCP - General Internal Medicine 12/08/21 Landen Guevara MD [address] [place] [address] [email or web address] Insurance Assigned Provider 06/12/15 07/16/20 Ros Hernandez MD [email or web address] Insurance Assigned Provider 07/16/20 07/14/22 Evaristo Mohr DO [address] [place] [address] Insurance Assigned Provider 07/13/23 Keri Knox RN [address] [place] [address] [email or web address] iCMP Email Production Consultant 12/31/22 documented as of this encounter Additional Source Comments The information contained in this document represents components of the legal health record. It is not the complete legal health record.[facility]
--- OUTSIDE RECORDS SUMMARY | 2025-01-05 13:07 | XMS_ITS | Encounter Summary ---
Author Organization [facility] Address [address] [facility] [address] [place] [address] Phone Care Team Providers Care Special Agent Fbi Name Role Phone Evaristo Mohr DO Primary Care Provider Evaristo Mohr DO Unavailable [phone] Keri Knox RN Unavailable [phone] Encounter Details Date Type Department Care Team (Late st Contact Info) Description 07/08/2024 Procedure Pass [employer], Ct Scan - [address] [id number] Social History Tobacco Use Types Packs/Day Years [...] 3:34 PM EDT Elif López, SIOBHAN * [place] Suicide Severity Rating Scale (Screener/Recent Self-Report) Question [...] 01/11/2025 2:00 PM EDT Office Visit [facility] [address] [place] [address] [place] [address] Evaristo Mohr, DO 170 [facility], 2nd [place] [address] [email or web address] 02/26/2025 10:30 AM EST Office Visit [facility] [address] [place] [address] Dr 3rd Floor, [address] [place] [address] Hernesto Marquez, DO 22 [facility] [address] [place] [address] 03/18/2025 9:30 AM EST Office Visit [facility] [address] [place] [address] [place] [address] Evaristo Mohr DO [address] [place] [address] documented as of this encounter Visit Diagnoses Not on filedocumented in this encounter Additional Health Concerns Infection Onset Date Last Indicated Resolved Time CoV-Risk 11/13/2024 11/13/2024 11/24/2024 1:21 AM EDT Assessment Noted Time PHQ-9 Depression Total Score: 8 12/14/19 21 12:03 PM EDT PHQ-2 Depression Total Score: 1 03/15/20 24 9:34 PM EST documented as of this encounter Care Teams Special Agent Fbi Relationship Specialty Start Date End Date Evaristo Mohr DO [address] [place] [address] PCP - General Internal Medicine 12/08/21 Evaristo Mohr DO [address] [place] [address] Insurance Assigned Provider 07/13/23 Keri Knox, RN [address] [place] [address] iCMP Computer Lab Para Professional 12/31/22 documented as of this encounter Additional Source Comments The information contained in this document represents components of the legal health record. It is not the complete legal health record.[facility]
--- OUTSIDE RECORDS SUMMARY | 2025-01-05 13:08 | XMS_ITS | Encounter Summary ---
Author Organization [facility] Address [address] [facility] [facility] [address] [place] [address] Phone Care Team Providers Care Orthopedics Pediatric Physician Name Role Phone Ros Hernandez MD Unavailable [email or web address] Evaristo Mohr DO Primary Care Provider Evaristo Mohr DO Unavailable [phone] Keri Knox RN Unavailable [phone] Encounter Details Date Type Department Care Team (Late st Contact Info) Description 01/25/2022 Transcribe Orders [facility] [address] [place] [address] Evaristo Mohr DO 170 [facility], 2nd [place] [address] [email or web address] Social History Tobacco Use Types Packs/Day Years [...] Description 01/11/2025 2:00 PM EDT Office Visit [address] [place] [address] Evaristo Mohr DO 170 [facility], 2nd [place] [address] [email or web address] 02/26/2025 10:30 AM EST Office Visit [facility] [address] 3rd Floor, [address] [place] [address] Hernesto Marquez DO 22 [facility] [address] [place] [address] 03/18/2025 9:30 AM EST Office Visit [address] [place] [address] Evaristo Mohr, 170 [facility], 2nd [place] [address] documented as of this encounter Visit Diagnoses [...] documented as of this encounter Care Teams Orthopedics Pediatric Physician Relationship Specialty Start Date End Date Evaristo Mohr DO [address] [place] [address], [address] [place] [address] PCP - General Internal Medicine 12/08/21 Ros Hernandez MD [email or web address] Insurance Assigned Provider 07/16/20 07/14/22 Evaristo Mohr DO [address] [place] [address] Insurance Assigned Provider 07/13/23 Keri Knox, RN [address] [place] [address] [email or web address] iCMP Windows Server Architect 12/31/22 documented as of this encounter Additional Source Comments The information contained in this document represents components of the legal health record. It is not the complete legal health record.[facility]
--- OUTSIDE RECORDS SUMMARY | 2025-01-05 13:08 | XMS_ITS | Encounter Summary ---
Author Organization [facility] Address [address] [facility] [address] [place] [address] Phone Care Team Providers Care Electronics Tech Name Role Phone Ros Hernandez MD Primary Care Provider [email or web address] Ros Hernandez MD Unavailable [email or web address] Evaristo Mohr DO Primary Care Provider Evaristo Mohr DO Unavailable [phone] Keri Knox RN Unavailable [phone] Encounter Details Date Type Department Care Team (Late st Contact Info) Description 12/06/2020 Procedure Pass [facility] Admitting Dept [facility] Department [address] [place] [address] Social History Tobacco Use Types Packs/Day Years [...] Description 01/11/2025 2:00 PM EDT Office Visit [facility] [place] [address] Evaristo Mohr, 170 [facility], 2nd [place] [address] [email or web address] 02/26/2025 10:30 AM EST Office Visit [facility] [address] 3[address] Floor, [address] [place] [address] Hernesto Marquez DO 22 [facility] [address] [place] [address] 03/18/2025 9:30 AM EST Office Visit [address] [place] [address] Evaristo Mohr, 170 [facility], 2nd [place] [address] documented as of this encounter Visit Diagnoses [...] documented as of this encounter Care Teams Electronics Tech Relationship Specialty Start Date End Date Ros Hernandez MD [email or web address] PCP - General Family Medicine 05/30/20 12/07/21 Evaristo Mohr DO [address] [place] [address] [email or web address] PCP - General Internal Medicine 12/08/21 Ros Hernandez MD [email or web address] Insurance Assigned Provider 07/16/20 07/14/22 Evaristo Mohr DO [address] [place] [address] [email or web address] Insurance Assigned Provider 07/13/23 Keri Knox, RN [address] [place] [address] [email or web address] [facility] Studio Technician 12/31/22 documented as of this encounter Additional Source Comments The information contained in this document represents components of the legal health record. It is not the complete legal health record.[facility]
--- OUTSIDE RECORDS SUMMARY | 2025-01-05 13:08 | XMS_ITS | Encounter Summary ---
Author Organization [facility] Address [address] [facility] [address] [place] [address] Phone Care Team Providers Care Access Liaison Name Role Phone Ros Hernandez MD Primary Care Provider [email or web address] ([email or web address] Ros Hernandez MD Unavailable [email or web address] Evaristo Mohr DO Primary Care Provider Evaristo Mohr DO Unavailable [phone] Keri Knox RN Unavailable [phone] Reason for Referral * MRI/CAT Scan - Closed Specialty Diagnoses / Procedures Referred By Nedra pruitt Referred To Contact Radiology Diagnoses Nausea Flushing Procedures CT Abdomen/Pelvis Marcie Wynn PA-C Phone: tel: fax: mailto:[email or web address] Referral ID Status Reason Start Date Expiration Date Visits Re quested Visits Authorized [id number] Closed 09/26/2020 09/26/2021 1 1 Encounter Details Date Type Department Care Team (Latest Contact Info) Description 09/26/2020 Transcribe Orders Virtual Department 30 [place] [address] Marcie Wynn PA-C [address] [place] [address] Nausea (Primary Dx); Flushing Social History Tobacco Use Types Packs/Day Years [...] Description 01/11/2025 2:00 PM EDT Office Visit [facility] [address] [place] [address] Evaristo Mohr, [address] [place] [address], 2nd [place] [address] 02/26/2025 10:30 AM EST Office Visit [facility] [address] [place] [address] 3rd Floor, [address] [place] [address] Hernesto Marquez 22 [facility] [address] [place] [address] 03/18/2025 9:30 AM EST Office Visit [facility] [address] [place] [address] Evaristo Mohr, [address] [place] [address], 2nd [place] [address] documented as of this encounter Results * CT ABDOMEN/PELVIS WITH CONTRAST (10/20/2020 4:29 PM EDT) Anatomical Region Laterality Modality Abdomen, Pelvis Computed Tomogra phy 10/20/2020 4:31 PM EDT Impressions 10/20/2020 4:40 PM EDT 1. No acute pathology nor explanation of nausea or flushing. 2. Minimally progressive mild hepatic steatosis. 3. Stable mild extrahepatic biliary dilatation unlikely to be significant. POS - [id number] Narrative 10/20/2020 4:40 PM EDT Oral and IV contrast. Compare 07/29/2012. FINDINGS: Slight increase in mild generalized hepatic steatosis. No focal liver lesions. Chronic mild dilatation of the extrahepatic biliary tree with the CBD measuring up to 9 mm is unchanged. No calcified choledocholithiasis or intrahepatic biliary dilatation. No gallstones, gallbladder wall thickening or hyperemia. No pancreatic masses or inflammatory changes. No splenomegaly or masses. No adrenal or renal masses, stones or hydronephrosis. No signs of pyelonephritis. Ureters and bladder unremarkable. No gynecologic pathology. No bowel mass, inflammatory changes or obstruction. Normal appendix well seen. No gastric pathology. Chronic 10 mm short axis periportal node unchanged from 2012. No significant adenopathy nor any other retroperitoneal/intraperitoneal soft tissue masses. No ascites. Lung bases and pleural spaces are clear. Slight worsening of diffuse degenerative disc disease throughout the lumbar spine since 2012 but no acute or worrisome bony abnormalities Procedure Note Landen Andrade MD - 10/20/2020 Oral and IV contrast. Compare 07/29/2012. FINDINGS: Slight increase in mild generalized hepatic steatosis. No focal liverlesions. Chronic mild dilatation of the extrahepatic biliary tree with the CBDmeasuring up to 9 mm is unchanged. No calcified choledocholithiasis orintrahepatic biliary dilatation. No gallstones, gallbladder wallthickening or hyperemia. No pancreatic masses or inflammatory changes. No splenomegaly or masses. No adrenal or renal masses, stones or hydronephrosis. No signs ofpyelonephritis. Ureters and bladder unremarkable. No gynecologic pathology. No bowel mass, inflammatory changes or obstruction. Normal appendix wellseen. No gastric pathology. Chronic 10 mm short axis periportal node unchanged from 2012. Nosignificant adenopathy nor any other retroperitoneal/intraperitoneal softtissue masses. No ascites. Lung bases and pleural spaces are clear. Slight worsening of diffuse degenerative disc disease throughout thelumbar spine since 2012 but no acute or worrisome bony abnormalities IMPRESSION: 1. No acute pathology nor explanation of nausea or flushing. 2. Minimally progressive mild hepatic steatosis. 3. Stable mild extrahepatic biliary dilatation unlikely to besignificant. POS - [id number] Marcie Wynn PA-C IMG CT ABD/PELVIS Final Result documented in this encounter Visit Diagnoses Diagnosis Nausea- Primary Nausea alone Flushing Nausea Nausea alone Flushing documented in this encounter Additional Health Concerns [...] documented as of this encounter Care Teams Access Liaison Relationship Specialty Start Date End Date Ros Hernandez MD [email or web address] PCP - General Family Medicine 05/30/20 12/07/21 Evaristo Mohr DO [address] [place] [address], 2nd [place] [address] PCP - General Internal Medicine 12/08/21 Ros Hernandez MD [email or web address] Insurance Assigned Provider 07/16/20 07/14/22 Evaristo Mohr DO [address] [place] [address], 2nd [place] [address] [email or web address] Insurance Assigned Provider 07/13/23 Keri Knox, RN [address] [place] [address] [email or web address] [facility] Rep 12/31/22 documented as of this encounter Additional Source Comments The information contained in this document represents components of the legal health record. It is not the complete legal health record.[facility]
--- OUTSIDE RECORDS SUMMARY | 2025-01-05 13:08 | XMS_ITS | Encounter Summary ---
Author Organization [facility] Address [address] [place] [address] Phone Care Team Providers Care Big Data Admin Name Role Phone Ros Hernandez MD Primary Care Provider [email or web address] Ros Hernandez MD Unavailable [email or web address] Evaristo Mohr DO Primary Care Provider Evaristo Mohr DO Unavailable [phone] Keri Knox RN Unavailable [phone] Encounter Details Date Type Department Care Team (Late st Contact Info) Description 09/26/2020 Procedure Pass [facility], Ct Scan - [address] [address] Social History Tobacco Use Types Packs/Day Years [...] Description 01/11/2025 2:00 PM EDT Office Visit [facility] [address] [place] [address] [place] [address] Evaristo Mohr, DO [address] [facility], [address] [place] [address] [email or web address] 02/26/2025 10:30 AM EST Office Visit [facility] [address] [place] [address] [address] Floor, [address] [place] [address] Hernesto Marquez DO [address] [place] [address] [email or web address] 03/18/2025 9:30 AM EST [facility] [address] [place] [address] [place] [address] Evaristo Mohr, DO [address] [facility], [address] [place] [address] [email or web address] documented as of this encounter Visit Diagnoses [...] documented as of this encounter Care Teams Big Data Admin Relationship Specialty Start Date End Date Ros Hernandez MD [email or web address] PCP - General Family Medicine 05/30/20 12/07/21 Evaristo Mohr DO [address] [place] [id number] PCP - General Internal Medicine 12/08/21 Ros Hernandez MD [email or web address] Insurance Assigned Provider 07/16/20 07/14/22 Evaristo Mohr DO [address] [place] [id number] [email or web address] Insurance Assigned Provider 07/13/23 Keri Knox, RN [address] [place] [id number] [email or web address] Medical Assistant 12/31/22 documented as of this encounter Additional Source Comments The information contained in this document represents components of the legal health record. It is not the complete legal health record.[facility]
--- OUTSIDE RECORDS SUMMARY | 2025-01-05 13:08 | XMS_ITS ---
Author Organization [facility] Address [address] [place] [address] Phone Care Team Providers Care Hydrographic Engineer Name Role Phone Evaristo Mohr DO Primary Care Provider Evaristo Mohr DO Unavailable Keri Knox RN Unavailable [phone] Care Management Status:Enrolled (Active) Start date:04/23/2023 Enrollment date:04/23/2023 Current support & services provided:[employer] Related social drivers of health:Housing Stability, Child or Family Care, Education, Food, Unemployment, Paying for Meds, Paying Utility Bills, Transportation, Digital Access, SNAP/WIC Case Team Name Relationship Phone Email Nurse Radio Technician RN Registered Nurse(Responsible Sta ff) [phone] Continued Care and Services Coordination
== END 2025-01-05 12:29 | disposition home or self-care (01) ==
LOC: HO.HUSH 11:43
PROVIDERS: PCP Pediatrics; Visit Provider Nurse Practitioner Family
DX: R32 Unspecified urinary incontinence (principal); N28.1 Cyst of kidney, acquired; Z13.9 Encounter for screening, unspecified
CPT/HCPCS: 99214; G2211

== ENCOUNTER → 2025-01-05 11:43 | Outpatient (BNVA) | payer MEDICARE, SELFPAY | PROVIDERS: PCP Pediatrics; Visit Provider Nurse Practitioner Family | DX: N28.1 Cyst of kidney, acquired (principal); R32 Unspecified urinary incontinence; N32.81 Overactive bladder; R39.15 Urgency of urination | CPT/HCPCS: 51798; 81003; 99212 ==